=== PATIENT | female | born 1985 | race Caucasian/White ===

== ENCOUNTER 2020-06-04 08:04 | Emergency (ER) | payer MEDICAID, OTHER ==
[~2020-06-04] VITALS: Ht 175.2 cm; Wt 95.5 kg
[2020-06-04] MEDS ORDERED: VARE1TAB22 (08:23)
[2020-06-04] MEDS ORDERED: SERT50TA9 (08:23)
[2020-06-04] MEDS ORDERED: BUSP5TAB59 (08:23)
--- NOTE | 2020-06-04 08:56 | Diagnostic Imaging Report ---
INDICATION: Right ankle pain. TECHNIQUE: AP, oblique, and lateral views of the right ankle were obtained. FINDINGS: On the lateral view, there is an oblique linear lucency in the distal tibia which may represent a nondisplaced fracture. Followup is recommended. There is some plantar and posterior calcaneal spurring. There is a calcification inferior to the tip of the medial malleolus of the distal tibia which may be a small avulsion, chronic versus acute. IMPRESSION: Questionable nondisplaced fracture of the distal tibia seen only on the lateral view, recommend followup imaging. Calcification is seen inferior to the medial malleolus of the distal tibia which may be an avulsion, chronic versus acute. Dictated by: Dictated on workstation # [id number]
--- NOTE | 2020-06-04 08:58 | Diagnostic Imaging Report ---
INDICATION: Injury, pain. FINDINGS: No acute fracture or dislocation is identified. There is enthesopathy and spurring at the calcaneus as well as accessory ossicles at the midfoot. No focal soft tissue swelling is evident. IMPRESSION: No acute appearing abnormality on the three view right foot exam. Dictated by: Dictated on workstation # [id number]
[2020-06-04] MEDS ORDERED: HYDROcodone/APAP 5 MG/325 MG (LORTAB) TAB PO ONE (09:00)
[2020-06-04] MEDS ORDERED: IBUPROFEN 600 MG (MOTRIN) TAB PO ONE (09:00)
--- NOTE | 2020-06-04 09:07 | ED Lower Extremity ---
General Chief Complaint: Lower Extremity Stated Complaint: RT KNEE INJ Nursing Triage Note: Pt presents to ED assisted with W/C. 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 Pt states her R foot went anteflexed under her full weight and falling. Pain with ROM Nursing Sepsis Screen: No Definite Risk Source: patient Exam Limitations: no limitations History of Present Illness Date Seen by Provider: Jun 04, 2020 Time Seen by Provider: 08:15 Initial Comments Dishes a 34-year-old female presents with right ankle injury. Patient was walking when she inverted her toes and anteflexed her ankle. She reports proximal and posterior ankle pain worse with palpation and weightbearing. She is unable to weight-bear secondary to pain. Patient also has a small abrasion over her left medial forefoot. Denies other injury or pain complaints. Injury occurred just prior to ED arrival. Onset: just prior to arrival Severity: moderate Pain/Injury Location: right ankle Method of Injury: direct blow Modifying Factors: Improves With Rest Allergies and Home Medications Allergies Coded Allergies: No Known Drug Allergies (Unverified , 06/04/20) Patient Home Medication List Home Medication List Reviewed: Yes Review of Systems Constitutional: no symptoms reported EENTM: no symptoms reported Respiratory: no symptoms reported Cardiovascular: no symptoms reported Gastrointestinal: no symptoms reported Genitourinary: no symptoms reported Musculoskeletal: joint pain Skin: see HPI Psychiatric/Neurological: No Symptoms Reported All Other Systems Reviewed Negative Unless Noted: Yes Past Zrgaolu-Obnksp-Dcfwmq Hx Past Med/Social Hx: Reviewed Nursing Past Med/Soc Hx Patient Social History Alcohol Use: Denies Use Recreational Drug Use: No Smoking Status: Current Everyday Smoker Type Used: Cigarettes Recent Foreign Travel: No Contact w/Someone Who Travel: No Recent Infectious Disease Expo: No Recent Hopitalizations: No Physical Abuse: No Sexual Abuse: No Mistreated: No Fear: No Immunizations Up To Date Tetanus Booster (TDap): Unknown Seasonal Allergies Seasonal Allergies: No Past Medical History Surgeries: Yes (Ablation uterus) Tubal Ligation Respiratory: No Cardiac: No Neurological: No : No Last Menstrual Period: May 19, 2020 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 oz. kg; 31.00 BMI Method: General Appearance: WD/WN, no apparent distress HEENT: PERRL/EOMI, pharynx normal Neck: full range of motion, normal inspection Cardiovascular: regular rate, rhythm Respiratory: lungs clear, normal breath sounds Ankles: right ankle abrasions/lacerations, right ankle bone tenderness, right ankle soft tissue tenderness, right ankle swelling Neurologic/Tendon: normal sensation Neurologic/Psychiatric: no motor/sensory deficits Skin: other (abrasions over dorsum of right forefoot) Progress/Results/Core Measures Results/Orders My Orders Orders - EVER POZO DO Ankle 3 View Right (06/04/20 08:34) Foot 3 View Right (06/04/20 08:34) Ibuprofen Tablet (Motrin Tablet) (06/04/20 09:00) Hydrocodone/Apap 5/325 Tablet (Lortab 5 (06/04/20 09:00) Nursing Communication (Order) (06/04/20 08:59) Ice: Apply To Affected Area (06/04/20 09:00) Vital Signs/I&O 06/04/20 08:15 Temp 36.6 Pulse 93 Resp 16 B/P (MAP) 138/77 (97) Pulse Ox 100 O2 Delivery Room Air Blood Pressure Mean: 97 Departure Communication (Admissions) Right foot/right ankle x-ray: Possible nondisplaced distal tibial fracture per radiology report. Pain address, patient placed since splint and given crutches. Instructed to remain nonweightbearing with orthopedic referral. Patient verbalizes understanding. Discharge instructions prior to departure. Impression Primary Impression: Ankle fracture Disposition: 01 HOME, SELF-CARE Condition: Stable Departure-Patient Inst. Decision time for Depature: 09:13 Referrals: [facility] (PCP) Primary Care Physician CHRISTIANA CHO APRN (Family) Primary Care Physician Patient Instructions: Ankle Fracture Add. Discharge Instructions: You were evaluated in the emergency department for right ankle injury. X-ray shows the possibility of a small nondisplaced ankle fracture. Please use crutches and remain nonweightbearing on affected foot. Take ibuprofen for pain apply ice and keep leg elevated at rest. Take hydrocodone as needed for additional relief. Follow-up with Dr. Bhagat strategic sourcing consultant for orthopedic surgery. Return to the ED if new or worsening symptoms. All discharge instructions reviewed with patient and/or family. Voiced understanding. EVER POZO DO Jun 04, 2020 09:07
[2020-06-04] MEDS ORDERED: ACHD5005 PO (09:17)
[2020-06-04 09:25] VITALS: BP 131/70
== END 2020-06-04 09:25 | disposition home or self-care (01) ==
LOC: ER FS 08:06
DX: S82.51XA Displaced fracture of medial malleolus of right tibia, initial encounter for closed fracture (principal); S90.811A Abrasion, right foot, initial encounter; F17.210 Nicotine dependence, cigarettes, uncomplicated; X50.1XXA Overexertion from prolonged static or awkward postures, initial encounter
CPT/HCPCS: 73610; 73630

== ENCOUNTER → 2020-11-22 | Outpatient (CLI) | payer MEDICAID ==
[~2020-11-22] MED LIST: ACHD5005 PO; BUSP5TAB59; SERT-413; VARE1TAB22
--- NOTE | 2020-11-22 11:35 | Diagnostic Imaging Report ---
EXAMINATION: AP supine abdomen INDICATION: Left abdominal pain. COMPARISON: None available. FINDINGS: There is a nonobstructive bowel gas pattern. Scattered gas and stool is noted in the colon, with mild retained stool noted throughout. No abnormal abdominal calcifications or organomegaly. No evidence of pneumoperitoneum on this supine study. No acute osseous abnormality is identified. Surgical clips are demonstrated in the left pelvis. IMPRESSION: Nonobstructive bowel gas pattern. Mild retained stool. Dictated by: Dictated on workstation # [id number]
== END ==
LOC: RAD FS 08:27
PROVIDERS: ATTEND Nurse Practitioner Family
DX: R10.9 Unspecified abdominal pain (principal)
CPT/HCPCS: 74018

== ENCOUNTER 2022-01-13 08:23 | Emergency (ER) | payer MEDICAID ==
[~2022-01-13] VITALS: Ht 177.8 cm; Wt 97.5 kg
[2022-01-13] MEDS ORDERED: morphine INJ 10 MG/ML 1ML (SYR OR VIAL) IVP STA (08:53)
[2022-01-13] MEDS ORDERED: ONDANSETRON 4 MG/2 ML (SDV) Z0FRAN IVP ONE (09:00)
[2022-01-13] MEDS ORDERED: KETOROLAC 30 MG/ML VIAL IVP ONE (09:00)
[2022-01-13 09:02] LABS: BASOPHILS # (AUTO) 0.1 10^3/uL (0.0-0.1); BASOPHILS % (AUTO) 1 % (0-10); EOSINOPHILS % (AUTO) 0 % (0-10); HEMATOCRIT 45 % (35-52); HEMOGLOBIN 14.9 g/dL (11.5-16.0); LYMPHOCYTES # (AUTO) 1.4 10^3/uL (1.0-4.0); LYMPHOCYTES % (AUTO) 13 % (12-44); MEAN CORPUSCULAR HEMOGLOBIN 32 pg (25-34); MEAN CORPUSCULAR HGB CONC 33 g/dL (32-36); MEAN CORPUSCULAR VOLUME 97 fL (80-99); MEAN PLATELET VOLUME 9.9 fL (9.0-12.2); MONOCYTES % (AUTO) 9 % (0-12); NEUTROPHILS # (AUTO) 8.1 10^3/uL (1.8-7.8); NEUTROPHILS % (AUTO) 76 % (42-75); PLATELET COUNT 251 10^3/uL (130-400); WHITE BLOOD COUNT 10.6 10^3/uL (4.3-11.0)
--- NOTE | 2022-01-13 09:03 | ED Back Pain ---
General Chief Complaint: Back Problems Stated Complaint: RT FLANK; ABD PAIN Source of Information: Patient Exam Limitations: No Limitations History of Present Illness Date Seen by Provider: Jan 13, 2022 Time Seen by Provider: 08:26 Initial Comments 36yoF with PMH of kidney stones coming in due to L>R flank pain. Has been severe, sharp, and intermittent for the past week or so. Went to the urgent care 2 days ago and they did a urine dip showing blood. Last kidney stone was around 2008. She has never required any surgical interventions for them. Has not had any medicines today due to nausea and nb/nb vomiting that started this morning She is otherwise denying any fever, abd pain, dysuria, weakness, numbness, fidel h, chest pain, SOA, or any other concerns. Of note, she had a tubal ligation and ablation of her uterus years ago. Allergies and Home Medications Allergies Coded Allergies: No Known Drug Allergies (Unverified , 06/04/20) Patient Home Medication List Home Medication List Reviewed: Yes Buspirone HCl (Buspirone HCl) 5 Mg Tablet, (Reported) Entered as Reported by: PAM BURNS on 06/04/20822 Hydrocodone/Acetaminophen (Hydrocodone-Acetamin 5-325 mg) 1 Each Tablet, 1 EACH PO Q6H Prescribed by: EVER POZO on 06/04/20 09 Sertraline HCl (Sertraline HCl) 50 Mg Tablet, (Reported) Entered as Reported by: PAM BURNS on 06/04/20822 Varenicline Tartrate (Chantix) 1 Mg Tablet, (Reported) Entered as Reported by: PAM BURNS on 06/04/20822 Review of Systems Constitutional: No chills, No fever Respiratory: No cough Cardiovascular: No chest pain Gastrointestinal: No abdominal pain Genitourinary: other (flank pain) Musculoskeletal: no symptoms reported Skin: no symptoms reported Psychiatric/Neurological: No Symptoms Reported All Other Systems Reviewed Negative Unless Noted: Yes Past Yhjviwm-Fzghjz-Srybon Hx Patient Social History Tobacco Use?: Yes Tobacco type used: Cigarettes Smoking Status: Current Everyday Smoker Smokeless Tobacco Frequency: Never a User Use of E-Cig and/or Vaping dev: No Use of E-Cig and/or Vaping Dieon: Never a User Substance use?: No Alcohol Use?: No Pt feels they are or have been: No Immunizations Up To Date Tetanus Booster (TDap): Unknown Seasonal Allergies Seasonal Allergies: No Past Medical History Surgeries: Yes (Ablation uterus) Tubal Ligation Respiratory: No Cardiac: No Neurological: 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 oz. kg; 31.00 BMI Method: General Appearance: WD/WN, Mild Distress HEENT: PERRL/EOMI, Normal ENT Inspection, Pharynx Normal Neck: Full Range of Motion, Normal Inspection, Non Tender, Supple Cardiovascular: Regular Rate, Rhythm, No Edema, Normal Peripheral Pulses Respiratory: Chest Non Tender, Lungs Clear, Normal Breath Sounds, No Accessory Muscle Use, No Respiratory Distress Gastrointestinal: Normal Bowel Sounds, Non Tender, Soft; No Distended, No Guarding Back: Normal Inspection, No Vertebral Tenderness, CVA Tenderness (L) Extremity: Normal Capillary Refill, Normal Inspection, Normal Range of Motion, Non Tender, No Calf Tenderness, No Pedal Edema Neurologic/Psychiatric: Alert, No Motor/Sensory Deficits, Normal Mood/Affect Skin: Normal Color, Warm/Dry Lymphatic: No Adenopathy Progress/Results/Core Measures Results/Orders Lab Results Laboratory Tests Test 01/13/22 08:50 01/13/22 08:57 Range/Units Urine Color YELLOW Urine Clarity SL CLOUDY Urine pH 6.5 5-9 Urine Specific [employer] 1.010 L 1.016-1.022 Urine Protein 2+ H NEGATIVE Urine Glucose (UA) NEGATIVE NEGATIVE Urine Ketones NEGATIVE NEGATIVE Urine Nitrite NEGATIVE NEGATIVE Urine Bilirubin NEGATIVE NEGATIVE Urine Urobilinogen 0.2 < = 1.0 MG/DL Urine Leukocyte Esterase NEGATIVE NEGATIVE Urine RBC (Auto) 3+ H NEGATIVE Urine RBC NONE /HPF Urine WBC NONE /HPF Urine Squamous Epithelial Cells 2-5 /HPF Urine Renal Epithelial Cells RARE /HPF Urine Crystals PRESENT H /LPF Urine Amorphous Sediment FEW CLAUDIA PHOSPHATE H /LPF Urine Bacteria NEGATIVE /HPF Urine Casts NONE /LPF Urine Mucus NEGATIVE /LPF Urine Culture Indicated NO White Blood Count 10.6 4.3-11.0 10^3/uL Red Blood Count 4.65 3.80-5.11 10^6/uL Hemoglobin 14.9 11.5-16.0 g/dL Hematocrit 45 35-52 % Mean Corpuscular Volume 97 80-99 fL Mean Corpuscular Hemoglobin 32 25-34 pg Mean Corpuscular Hemoglobin Concent 33 32-36 g/dL Red Cell Distribution Width 13.5 10.0-14.5 % Platelet Count 251 130-400 10^3/uL Mean Platelet Volume 9.9 9.0-12.2 fL Immature Granulocyte % (Auto) 0 % Neutrophils (%) (Auto) 76 H 42-75 % Lymphocytes (%) (Auto) 13 12-44 % Monocytes (%) (Auto) 9 0-12 % Eosinophils (%) (Auto) 0 0-10 % Basophils (%) (Auto) 1 0-10 % Neutrophils # (Auto) 8.1 H 1.8-7.8 10^3/uL Lymphocytes # (Auto) 1.4 1.0-4.0 10^3/uL Monocytes # (Auto) 1.0 0.0-1.0 10^3/uL Eosinophils # (Auto) 0.0 0.0-0.3 10^3/uL Basophils # (Auto) 0.1 0.0-0.1 10^3/uL Immature Granulocyte # (Auto) 0.0 0.0-0.1 10^3/uL Sodium Level 143 135-145 MMOL/L Potassium Level 4.3 3.6-5.0 MMOL/L Chloride Level 110 H 98-107 MMOL/L Carbon Dioxide Level 23 21-32 MMOL/L Anion Gap 10 5-14 MMOL/L Blood Urea Nitrogen 11 7-18 MG/DL Creatinine 1.46 H 0.60-1.30 MG/DL Estimat Glomerular Filtration Rate 47 BUN/Creatinine Ratio 8 Glucose Level 113 H 70-105 MG/DL Calcium Level 9.4 8.5-10.1 MG/DL Corrected Calcium 9.2 8.5-10.1 MG/DL Total Bilirubin 0.2 0.1-1.0 MG/DL Aspartate Amino Transf (AST/SGOT) 18 5-34 U/L Alanine Aminotransferase (ALT/SGPT) 8 0-55 U/L Alkaline Phosphatase 77 40-136 U/L Total Protein 7.3 6.4-8.2 GM/DL Albumin 4.2 3.2-4.5 GM/DL My Orders Orders - EDIS SIMPSON MD Cbc With Automated Diff (01/13/22 08:53) Comprehensive Metabolic Panel (01/13/22 08:53) Ua Culture If Indicated (01/13/22 08:53) Ondansetron Injection (Zofran Injectio (01/13/22 09:00) Morphine Injection (Morphine Injection (01/13/22 08:53) Ketorolac Injection (Toradol Injection) (01/13/22 09:00) Ct Abdomen/Pelvis Wo (01/13/22 08:53) Medications Given in ED Current Medications Medications Dose Ordered Sig/Ariel Route Start Time Stop Time Status Last Admin Dose Admin Ketorolac Tromethamine 15 mg ONCE ONCE IVP 01/13/22 09:00 01/13/22 09:01 DC 01/13/22 09:02 15 MG Ondansetron HCl 4 mg ONCE ONCE IVP 01/13/22 09:00 01/13/22 09:01 DC 01/13/22 09:02 4 MG Vital Signs/I&O 01/13/22 08:47 Temp 36.7 Pulse 99 Resp 19 B/P (MAP) 145/99 (114) O2 Delivery Room Air Progress Progress Note : Progress Note 36yoF with above history coming in due to left flank pain. ABCs intact and VSS on presentation. She is tearful and leaning over an emesis bag. An IV was placed and she was given morphine as well as toradol for pain. Given zofran for nausea. White blood cell count normal, urinalysis with blood, creatinine 1.[address] abdomen pelvis without contrast ordered and shows no acute abnormality. Given the amount of blood in her urine with the history, I suspect she passed a kidney stone already, possibly this morning. I will have her follow-up with her primary care and give her information for urology if things are not improving. She needs to have a repeat urinalysis to see if the blood clears just in case it was not a kidney stone. I believe she is stable for discharge with outpatient follow-up. She was sent home with strict return precautions Departure Impression Primary Impression: Hematuria Qualified Codes: R31.9 - Hematuria, unspecified Additional Impression: Flank pain Disposition: 01 HOME, SELF-CARE Condition: Stable Departure-Patient Inst. Decision time for Depature: 09:32 Referrals: [facility]/ (PCP/Family) Primary Care Physician Patient Instructions: Flank Pain ED Add. Discharge Instructions: The CT of your abdomen and pelvis did not show any stone right now. I suspect you passed 1 earlier today and that is why it was normal. Fortunately there are no stones in your kidneys right now so you should not be passing any more for a while. Is always possible you have experiencing a back spasm. I recommend f ollowing up with your regular doctor in the next 2 to 3 days if things are not improving. Drink plenty of water because you are kidney function is slightly down. I want you to have your regular doctor to repeat labs for your kidney function and a repeat urine study to be sure the blood clears here in the next couple of weeks. Scripts Ondansetron (Ondansetron Odt) 4 Mg Tab.rapdis 4 MG PO Q6H PRN for NAUSEA/VOMITING-1ST LINE for 5 Days, #20 TAB Prov: EDIS SIMPSON MD 01/13/22 Hydrocodone Bit/Acetaminophen (HYDROcodone/APAP 5 MG/325 MG TAB) 1 Tab Tab 1 TAB PO Q6H PRN for SPASMS for 3 Days, #12 TAB 0 Refills Prov: EDIS SIMPSON MD 01/13/22 Work/School Note: Work Release Form Date Seen in the Emergency Department: Jan 13, 2022 Return to Work: Jan 14, 2022 Restrictions: No Restrictions EDIS SIMPSON MD Jan 13, 2022 09:03
[2022-01-13 09:04] LABS: BILIRUBIN,URINE NEGATIVE (NEGATIVE); CLARITY,URINE SL CLOUDY; COLOR,URINE YELLOW; GLUCOSE, URINE (UA) NEGATIVE (NEGATIVE); KETONES,URINE NEGATIVE (NEGATIVE); LEUKOCYTE ESTERASE ,URINE NEGATIVE (NEGATIVE); NITRITE,URINE NEGATIVE (NEGATIVE); PH,URINE 6.5 (5-9); PROTEIN,URINE 2+ (NEGATIVE)
[2022-01-13 09:13] LABS: AMORPHOUS SEDIMENT,UR FEW AMOR PHOSPHATE /LPF; BACTERIA,URINE NEGATIVE /HPF; RENAL EPITHELIAL CELLS,URINE RARE /HPF
--- NOTE | 2022-01-13 09:23 | Diagnostic Imaging Report ---
PROCEDURE: CT abdomen and pelvis without contrast. TECHNIQUE: Multiple contiguous axial images were obtained through the abdomen and pelvis without the use of intravenous contrast. Auto Exposure Controls were utilized during the CT exam to meet ALARA standards for radiation dose reduction. INDICATION: Right flank pain. I have no relevant comparison. FINDINGS: There is no hydroureteronephrosis and there are no radiopaque urinary tract calculi. The unopacified urinary bladder grossly unremarkable. The uterus and adnexa showed no acute or suspicious finding. Minute right pelvic free fluid within normal physiologic limits in a female patient of this age. There is no diverticulitis. There is no appendicitis. About 4 cm cephalad to the umbilicus is a midline ventral abdominal wall hernia with the hernial orifice measuring just less than 4 mm in diameter through the hernia as a fatty protrusion. No herniation of viscus. No obvious fluid or inflammatory changes within the fatty hernia sac. Liver, gallbladder, bile ducts, spleen, adrenals and pancreas unremarkable. No pneumatosis. No free air. No abnormal fecal loading. No ileus or bowel obstruction. IMPRESSION: 1. No kidney stone, no hydronephrosis, no acute finding. Midline ventral supraumbilical fatty abdominal wall hernia. No viscus hernia. 2. The remaining unopacified abdominal pelvic solid and hollow viscus unremarkable. Dictated by: Dictated on workstation # [id number]
[2022-01-13 09:25] LABS: POTASSIUM 4.3 MMOL/L (3.6-5.0)
[2022-01-13 09:26] LABS: ALBUMIN 4.2 GM/DL (3.2-4.5); BILIRUBIN,TOTAL 0.2 MG/DL (0.1-1.0); CALCIUM 9.4 MG/DL (8.5-10.1); CREATININE SERUM 1.46 MG/DL (0.60-1.30); TOTAL PROTEIN 7.3 GM/DL (6.4-8.2)
[2022-01-13] MEDS ORDERED: ACHD5005 PO (09:37)
[2022-01-13] MEDS ORDERED: ONDA4TAB11 PO (09:37)
[2022-01-13 09:46] VITALS: BP 137/61
== END 2022-01-13 09:47 | disposition home or self-care (01) ==
LOC: EDUNIT# 08:23 → ER FS 08:26
DX: R31.9 Hematuria, unspecified (principal); F17.210 Nicotine dependence, cigarettes, uncomplicated
CPT/HCPCS: 36415; 74176; 80053; 81000; 85025

== ENCOUNTER 2022-01-15 08:14 | Observation (INO) | payer MEDICAID ==
[~2022-01-15] VITALS: Ht 171 cm; Wt 100.0 kg
[~2022-01-15 08:14] MED LIST changes: +ONDA4TAB11 PO
--- NOTE | 2022-01-15 09:06 | ED Back Pain ---
General Chief Complaint: Abdominal/GI Problems Stated Complaint: BACK PAIN, N/V Nursing Triage Note: PT STATES HX OF RT FLANK PAIN, WAS SEEN HERE IN THE ER FOR THE SAME 01/13. STILL HAS PAIN AND VOMITING, ZOFRAN NOT HELPING AND WAS UNABLE TO GET INTO HER DR. Source of Information: Patient Exam Limitations: No Limitations History of Present Illness Date Seen by Provider: Jan 15, 2022 Time Seen by Provider: 08:50 Initial Comments Patient is a 36-year-old female who presents to the emergency department today with a chief complaint of right flank pain, low back pain ongoing for the last 3 or 4 days. She states she was seen at [facility] a couple of days ago, had labs, urine and imaging performed. She was told she had some microscopic hematuria as well as some mild kidney dysfunction. It was recommended she foll ow-up with her primary care physician for repeat labs. Patient was sent home with some hydrocodone and Zofran, states she has been taking the medications as prescribed but her pain has persisted. No fevers or chills. She is still vomiting. She was unable to get an outpatient follow-up appointment. She presents with similar symptoms. She does states she has a history of kidney stones remotely last in 2006. Has a history of tubal ligation. No problems with bowel or bladder. All other review of systems reviewed and negative except as stated Location: Lumbar Spine Timing/Duration: 1 Week Severity: Severe ("10") Modifying Factors: Improves With Other (laying down makes pain worse) Allergies and Home Medications Allergies Coded Allergies: No Known Drug Allergies (Unverified , 06/04/20) Patient Home Medication List Home Medication List Reviewed: Yes Buspirone HCl (Buspirone HCl) 5 Mg Tablet, (Reported) Entered as Reported by: PAM BURNS on 06/04/20 0823 Hydrocodone Bit/Acetaminophen (HYDROcodone/APAP 5 MG/325 MG TAB) 1 Tab Tab, 1 TAB PO Q6H PRN for SPASMS Prescribed by: EDIS SIMPSON on 01/13/22 0937 Hydrocodone/Acetaminophen (Hydrocodone-Acetamin 5-325 mg) 1 Each Tablet, 1 EACH PO Q6H Prescribed by: EVER POOZ on 06/04/20 0917 Ondansetron (Ondansetron Odt) 4 Mg Tab.rapdis, 4 MG PO Q6H PRN for NAUSEA/VOMITING-1ST LINE Prescribed by: EDIS SIMPSON on 01/13/22 0937 Sertraline HCl (Sertraline HCl) 50 Mg Tablet, (Reported) Entered as Reported by: PAM BURNS on 06/04/20 08 Varenicline Tartrate (Chantix) 1 Mg Tablet, (Reported) Entered as Reported by: PAM BURNS on 06/04/20 08 Review of Systems Constitutional: see HPI EENTM: no symptoms reported Respiratory: no symptoms reported Cardiovascular: no symptoms reported Gastrointestinal: nausea, vomiting Genitourinary: no symptoms reported : No Control/STD Prophylaxis: Other Musculoskeletal: back pain (low lumbar and right flank) Skin: no symptoms reported All Other Systems Reviewed Negative Unless Noted: Yes Past Lvblorh-Kaggug-Bhkteo Hx Patient Social History Tobacco Use?: Yes Tobacco type used: Cigarettes Smoking Status: Current Everyday Smoker Substance use?: No Alcohol Use?: No Immunizations Up To Date Tetanus Booster (TDap): Unknown Second COVID19 Vaccination Alex: 03/2021 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: [employer] Seasonal Allergies Seasonal Allergies: No Past Medical History Surgery/Hospitalization HX: TUBAL LIGATION Surgeries: Yes (Ablation uterus) Tubal Ligation Respiratory: No Cardiac: No Neurological: No 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 oz. kg; 33.00 BMI Method: General Appearance: WD/WN, Anxious HEENT: PERRL/EOMI Neck: Normal Inspection Cardiovascular: Regular Rate, Rhythm, Normal Peripheral Pulses Respiratory: Lungs Clear, Normal Breath Sounds, No Accessory Muscle Use, No Respiratory Distress Gastrointestinal: Soft, Tenderness (mild suprapubic tenderness and right lower quadrant tenderness; normal bowel sounds) Back: No CVA Tenderness (L), No CVA Tenderness (R) Extremity: Normal Capillary Refill, Normal Inspection, Normal Range of Motion Neurologic/Psychiatric: Alert, Oriented x3, No Motor/Sensory Deficits Skin: Normal Color, Warm/Dry, Other (no rashes) Progress/Results/Core Measures Results/Orders Lab Results Laboratory Tests Test 01/15/22 08:35 01/15/22 09:25 Range/Units Urine Color YELLOW Urine Clarity CLEAR Urine pH 5.5 5-9 Urine Specific Bude <=1.005 1.016-1.022 Urine Protein NEGATIVE NEGATIVE Urine Glucose (UA) NEGATIVE NEGATIVE Urine Ketones NEGATIVE NEGATIVE Urine Nitrite NEGATIVE NEGATIVE Urine Bilirubin NEGATIVE NEGATIVE Urine Urobilinogen 0.2 < = 1.0 MG/DL Urine Leukocyte Esterase NEGATIVE NEGATIVE Urine RBC (Auto) 1+ H NEGATIVE Urine RBC NONE /HPF Urine WBC 0-2 /HPF Urine Squamous Epithelial Cells 0-2 /HPF Urine Crystals NONE /LPF Urine Bacteria TRACE /HPF Urine Casts NONE /LPF Urine Mucus NEGATIVE /LPF Urine Culture Indicated NO White Blood Count 9.5 4.3-11.0 10^3/uL Red Blood Count 4.04 3.80-5.11 10^6/uL Hemoglobin 13.2 11.5-16.0 g/dL Hematocrit 40 35-52 % Mean Corpuscular Volume 98 80-99 fL Mean Corpuscular Hemoglobin 33 25-34 pg Mean Corpuscular Hemoglobin Concent 33 32-36 g/dL Red Cell Distribution Width 13.2 10.0-14.5 % Platelet Count 235 130-400 10^3/uL Mean Platelet Volume 10.1 9.0-12.2 fL Immature Granulocyte % (Auto) 0 % Neutrophils (%) (Auto) 74 42-75 % Lymphocytes (%) (Auto) 17 12-44 % Monocytes (%) (Auto) 8 0-12 % Eosinophils (%) (Auto) 0 0-10 % Basophils (%) (Auto) 0 0-10 % Neutrophils # (Auto) 7.0 1.8-7.8 10^3/uL Lymphocytes # (Auto) 1.6 1.0-4.0 10^3/uL Monocytes # (Auto) 0.8 0.0-1.0 10^3/uL Eosinophils # (Auto) 0.0 0.0-0.3 10^3/uL Basophils # (Auto) 0.0 0.0-0.1 10^3/uL Immature Granulocyte # (Auto) 0.0 0.0-0.1 10^3/uL Sodium Level 143 135-145 MMOL/L Potassium Level 4.2 3.6-5.0 MMOL/L Chloride Level 112 H 98-107 MMOL/L Carbon Dioxide Level 18 L 21-32 MMOL/L Anion Gap 13 5-14 MMOL/L Blood Urea Nitrogen 17 7-18 MG/DL Creatinine 2.88 #H 0.60-1.30 MG/DL Estimat Glomerular Filtration Rate 21 BUN/Creatinine Ratio 6 Glucose Level 98 70-105 MG/DL Calcium Level 8.8 8.5-10.1 MG/DL Corrected Calcium 9.0 8.5-10.1 MG/DL Total Bilirubin 0.5 0.1-1.0 MG/DL Aspartate Amino Transf (AST/SGOT) 17 5-34 U/L Alanine Aminotransferase (ALT/SGPT) < 6 0-55 U/L Alkaline Phosphatase 59 40-136 U/L Total Creatine Kinase 51 29-168 U/L Total Protein 6.7 6.4-8.2 GM/DL Albumin 3.8 3.2-4.5 GM/DL Serum Test, Qualitative NEGATIVE NEGATIVE My Orders Orders - PABLO SHAH MD Ed Iv/Invasive Line Start (01/15/22 09:06) Cbc With Automated Diff (01/15/22 09:06) Comprehensive Metabolic Panel (01/15/22 09:06) Hcg,Qualitative Serum (01/15/22 09:06) Ua Culture If Indicated (01/15/22 09:06) Ondansetron Injection (Zofran Injectio (01/15/22 09:15) Fentanyl Inj (Sublimaze Injection) (01/15/22 09:15) Ns Iv 1000 Ml (Sodium Chloride 0.9%) (01/15/22 09:15) Creatine Kinase (01/15/22 09:39) Fentanyl Inj (Sublimaze Injection) (01/15/22 10:45) Glycopyrrolate Injection (Robinul Inject (01/15/22 10:45) Tamsulosin Capsule (Flomax Capsule) (01/15/22 10:37) Ct Abdomen/Pelvis Wo (01/15/22 10:37) Ns Iv 1000 Ml (Sodium Chloride 0.9%) (01/15/22 10:45) Ns Iv 1000 Ml (Sodium Chloride 0.9%) (01/15/22 11:45) Medications Given in ED Current Medications Medications Dose Ordered Sig/Ariel Route Start Time Stop Time Status Last Admin Dose Admin Fentanyl Citrate 50 mcg ONCE ONCE IVP 01/15/22 09:15 01/15/22 09:16 DC 01/15/22 09:28 50 MCG Fentanyl Citrate 50 mcg ONCE ONCE IVP 01/15/22 10:45 01/15/22 10:46 DC 01/15/22 10:57 50 MCG Glycopyrrolate 0.2 mg ONCE ONCE IV 01/15/22 10:45 01/15/22 10:46 DC 01/15/22 11:29 0.2 MG Ondansetron HCl 4 mg ONCE ONCE IVP 01/15/22 09:15 01/15/22 09:16 DC 01/15/22 09:28 4 MG Vital Signs/I&O 01/15/22 01/15/22 01/15/22 08:24 09:28 10:57 Temp 37.4 37.4 37.4 Pulse 97 Resp 20 B/P (MAP) 132/98 (109) Pulse Ox 97 O2 Delivery Room Air Blood Pressure Mean: 109 Progress Progress Note #1: Time: 10:32 Progress Note Discussed with Dr Brooks. he recommends repeating the non contrast CT. Will provide further pain management. Progress Note #2: Time: 12:34 Progress Note Reassessed patient, she states her pain is a little bit better. She appears comfortable sitting in the bed. Stable vital signs. I communicated the plan of care with her. I did discuss her case with Dr. Lopez, secondary to the dramatic increase in her creatinine and decrease in GFR we will go ahead and admit her with acute kidney injury, fluids and further investigation and management into her back pain and renal failure. Patient is comfortable with the plan of care. Dr. Lopez will be doing que'd orders. Departure Communication (Admissions) Time/Spoke to Admitting Phy: 12:[address] Lopez Impression Primary Impression: Acute kidney injury Additional Impression: Low back pain Qualified Codes: M54.50 - Low back pain, unspecified Disposition: ADMITTED INPATIENT Condition: Stable Admissions Decision to Admit Reason: Admit from ER (General) Decision to Admit/Date: Jan 15, 2022 Time/Decision to Admit Time: 12:35 Departure-Patient Inst. Referrals: [facility] (PCP) Primary Care Physician CHARLEE HE APRN (Family) Primary Care Physician PABLO SHAH MD Jan 15, 2022 09:06
[2022-01-15 09:12] LABS: BILIRUBIN,URINE NEGATIVE (NEGATIVE); CLARITY,URINE CLEAR; COLOR,URINE YELLOW; GLUCOSE, URINE (UA) NEGATIVE (NEGATIVE); KETONES,URINE NEGATIVE (NEGATIVE); LEUKOCYTE ESTERASE ,URINE NEGATIVE (NEGATIVE); NITRITE,URINE NEGATIVE (NEGATIVE); PH,URINE 5.5 (5-9); PROTEIN,URINE NEGATIVE (NEGATIVE)
[2022-01-15] MEDS ORDERED: fentaNYL INJ 100 MCG/2 ML AMP IVP ONE ×2 (09:15→10:45)
[2022-01-15] MEDS ORDERED: ONDANSETRON 4 MG/2 ML (SDV) Z0FRAN IVP ONE (09:15)
[2022-01-15] MEDS ORDERED: NS IV 1000 ML 1,000 ML IV SCH ×3 (09:15→11:45)
[2022-01-15 09:23] LABS: BACTERIA,URINE TRACE /HPF; SQUAMOUS EPITHELIAL CELL,UR 0-2 /HPF; WBC,URINE 0-2 /HPF
[2022-01-15 09:32] LABS: BASOPHILS % (AUTO) 0 % (0-10); EOSINOPHILS % (AUTO) 0 % (0-10); HEMATOCRIT 40 % (35-52); HEMOGLOBIN 13.2 g/dL (11.5-16.0); LYMPHOCYTES # (AUTO) 1.6 10^3/uL (1.0-4.0); LYMPHOCYTES % (AUTO) 17 % (12-44); MEAN CORPUSCULAR HEMOGLOBIN 33 pg (25-34); MEAN CORPUSCULAR HGB CONC 33 g/dL (32-36); MEAN CORPUSCULAR VOLUME 98 fL (80-99); MEAN PLATELET VOLUME 10.1 fL (9.0-12.2); MONOCYTES # (AUTO) 0.8 10^3/uL (0.0-1.0); MONOCYTES % (AUTO) 8 % (0-12); NEUTROPHILS % (AUTO) 74 % (42-75); PLATELET COUNT 235 10^3/uL (130-400); WHITE BLOOD COUNT 9.5 10^3/uL (4.3-11.0)
[2022-01-15 09:47] LABS: ALBUMIN 3.8 GM/DL (3.2-4.5)
[2022-01-15 09:48] LABS: CHLORIDE 112 MMOL/L (98-107); POTASSIUM 4.2 MMOL/L (3.6-5.0); SODIUM 143 MMOL/L (135-145)
[2022-01-15 09:49] LABS: CALCIUM 8.8 MG/DL (8.5-10.1)
[2022-01-15 09:50] LABS: GLUCOSE 98 MG/DL (70-105); TOTAL PROTEIN 6.7 GM/DL (6.4-8.2)
[2022-01-15 09:51] LABS: CARBON DIOXIDE 18 MMOL/L (21-32)
[2022-01-15 09:52] LABS: BILIRUBIN,TOTAL 0.5 MG/DL (0.1-1.0)
[2022-01-15 09:53] LABS: ALKALINE PHOSPHATASE 59 U/L (40-136)
[2022-01-15 09:54] LABS: CREATININE SERUM 2.88 MG/DL (0.60-1.30); GFR ESTIMATED 21
[2022-01-15 09:55] LABS: BUN/CREATININE RATIO 6
[2022-01-15 09:57] LABS: ALANINE AMINOTRANSFERASE < 6 U/L (0-55)
[2022-01-15] MEDS ORDERED: TAMSULOSIN 0.4 MG (FLOMAX) CAP PO STA (10:37)
[2022-01-15] MEDS ORDERED: GLYCOPYRROLATE 0.2 MG/ML (ROBINUL) 2 ML VIAL IV ONE (10:45)
--- NOTE | 2022-01-15 11:47 | Diagnostic Imaging Report ---
PROCEDURE: CT abdomen and pelvis without contrast. TECHNIQUE: Multiple contiguous axial images were obtained through the abdomen and pelvis without the use of intravenous contrast. Auto Exposure Controls were utilized during the CT exam to meet ALARA standards for radiation dose reduction. INDICATION: Left-sided pain Comparison made to 01/13/2022. FINDINGS: There are no radiopaque urinary tract calculi. There is no hydroureteronephrosis. There is no perinephric or periureteric stranding or edema. The unopacified urinary bladder nondisplaced and nonfocal. The uterus and adnexa nonacute. There is no appendicitis, diverticulitis or evidence for torsion or volvulus. No small or large bowel obstruction. There is no pneumatosis or free gas. There is no focal inflammatory process identified. Liver, gallbladder, bile ducts, spleen, adrenals and pancreas all unremarkable. The aorta is nonaneurysmal. The lung bases clear and well expanded. No acute bony pathology. There is a midline ventral supraumbilical abdominal wall hernia with the hernial orifice 1.7 cm diameter its content solely fat and is associated with some generalized rectus diastases. IMPRESSION: Stable supraumbilical ventral abdominal wall fatty hernia. Unobstructed nonfocal urinary tracts no inflammatory process or acute appearing abnormalities. No change from recent exam. Dictated by: Dictated on workstation # [id number]
[2022-01-15 14:41] VITALS: BP 130/84
[2022-01-15] MEDS ORDERED: ONDA4TAB11 PO (14:46)
[2022-01-15] MEDS ORDERED: ACHD5005 PO (14:46)
[2022-01-15] MEDS: NS IV 1000 ML 1,000 ML IV SCH ×2 (14:58→21:14)
[2022-01-15 16:13] VITALS: BP 122/64
[2022-01-15 19:56] VITALS: BP 126/70
[2022-01-16] VITALS (7 sets, daily range): BP systolic 124–147; BP diastolic 66–96
[2022-01-16] MEDS: NS IV 1000 ML 1,000 ML IV SCH ×4 (03:55→23:24)
[2022-01-16 05:59] LABS: BASOPHILS % (AUTO) 0 % (0-10); EOSINOPHILS # (AUTO) 0.1 10^3/uL (0.0-0.3); EOSINOPHILS % (AUTO) 1 % (0-10); HEMATOCRIT 36 % (35-52); HEMOGLOBIN 11.9 g/dL (11.5-16.0); LYMPHOCYTES # (AUTO) 1.6 10^3/uL (1.0-4.0); LYMPHOCYTES % (AUTO) 21 % (12-44); MEAN CORPUSCULAR HEMOGLOBIN 33 pg (25-34); MEAN CORPUSCULAR HGB CONC 33 g/dL (32-36); MEAN CORPUSCULAR VOLUME 100 fL (80-99); MEAN PLATELET VOLUME 10.5 fL (9.0-12.2); MONOCYTES # (AUTO) 0.8 10^3/uL (0.0-1.0); MONOCYTES % (AUTO) 10 % (0-12); NEUTROPHILS # (AUTO) 5.1 10^3/uL (1.8-7.8); NEUTROPHILS % (AUTO) 68 % (42-75); PLATELET COUNT 168 10^3/uL (130-400); WHITE BLOOD COUNT 7.5 10^3/uL (4.3-11.0)
[2022-01-16 06:18] LABS: ALBUMIN 3.1 GM/DL (3.2-4.5); POTASSIUM 4.5 MMOL/L (3.6-5.0)
[2022-01-16 06:20] LABS: TOTAL PROTEIN 5.6 GM/DL (6.4-8.2)
[2022-01-16 06:22] LABS: BILIRUBIN,TOTAL 0.4 MG/DL (0.1-1.0)
[2022-01-16 06:24] LABS: CREATININE SERUM 2.73 MG/DL (0.60-1.30)
--- NOTE | 2022-01-16 11:39 | History & Physical ---
HPI History of Present Illness: 36 yo F that presented to the ER 2 days in a row with severe right flank pain. States that she has had kidney stones before and it felt similar but this time was alot worse. CT in [place] did not reveal any stones and patient denies passing any. She did have blood in her urine at that time. Repeat CT done in [place] and again did not reveal any stones. However she did have an increase in her Cr to 2.7. Patient denies ever being told she previously had any elevation in Cr. States that her grandmother did have kidney disease but she developed it later in life. She does not have any medical history from her mother or father. She states that she has been eating and drinking alittle less then normal but still has been urinating. This AM her flank pain is much better. Cr has improved some. Source: patient Exam Limitations: no limitations Date seen by provider: Jan 16, 2022 Time Seen by Provider: 09:15 Attending Physician Dallas Lopez MD [facility] [place] Consult Date of Admission Jan 15, 2022 at 12:34 Home Medications Home Medications Reviewed patient Home Medication Reconciliation performed by pharmacy medication reconciliations materials engineering technician and/or nursing. Patients Allergies have been reviewed. 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[employer] Past Medical History NA Review of Systems ([facility]) Constitutional: No fever, No malaise EENTM: no symptoms reported; No mouth pain, No nose congestion, No nose pain Respiratory: no symptoms reported; No cough, No dyspnea on exertion, No short of breath Cardiovascular: no symptoms reported; No chest pain, No edema, No palpitations Gastrointestinal: abdominal pain; No constipation, No diarrhea; loss of appetite; No nausea, No vomiting Genitourinary: dysuria, hematuria Musculoskeletal: back pain Skin: no symptoms reported; No lesions, No rash Psychiatric/Neurological: No Symptoms Reported Reviewed Test Results Reviewed Test Results Lab Laboratory Tests Test 01/16/22 05:43 01/16/22 07:00 Range/Units White Blood Count 7.5 4.3-11.0 10^3/uL Red Blood Count 3.61 L 3.80-5.11 10^6/uL Hemoglobin 11.9 11.5-16.0 g/dL Hematocrit 36 35-52 % Mean Corpuscular Volume 100 H 80-99 fL Mean Corpuscular Hemoglobin 33 25-34 pg Mean Corpuscular Hemoglobin Concent 33 32-36 g/dL Red Cell Distribution Width 13.2 10.0-14.5 % Platelet Count 168 130-400 10^3/uL Mean Platelet Volume 10.5 9.0-12.2 fL Immature Granulocyte % (Auto) 0 % Neutrophils (%) (Auto) 68 42-75 % Lymphocytes (%) (Auto) 21 12-44 % Monocytes (%) (Auto) 10 0-12 % Eosinophils (%) (Auto) 1 0-10 % Basophils (%) (Auto) 0 0-10 % Neutrophils # (Auto) 5.1 1.8-7.8 10^3/uL Lymphocytes # (Auto) 1.6 1.0-4.0 10^3/uL Monocytes # (Auto) 0.8 0.0-1.0 10^3/uL Eosinophils # (Auto) 0.1 0.0-0.3 10^3/uL Basophils # (Auto) 0.0 0.0-0.1 10^3/uL Immature Granulocyte # (Auto) 0.0 0.0-0.1 10^3/uL Sodium Level 143 135-145 MMOL/L Potassium Level 4.5 3.6-5.0 MMOL/L Chloride Level 117 H 98-107 MMOL/L Carbon Dioxide Level 15 L 21-32 MMOL/L Anion Gap 11 5-14 MMOL/L Blood Urea Nitrogen 18 7-18 MG/DL Creatinine 2.73 H 0.60-1.30 MG/DL Estimat Glomerular Filtration Rate 22 BUN/Creatinine Ratio 7 Glucose Level 100 70-105 MG/DL Calcium Level 8.0 L 8.5-10.1 MG/DL Corrected Calcium 8.7 8.5-10.1 MG/DL Total Bilirubin 0.4 0.1-1.0 MG/DL Aspartate Amino Transf (AST/SGOT) 25 5-34 U/L Alanine Aminotransferase (ALT/SGPT) 18 0-55 U/L Alkaline Phosphatase 61 40-136 U/L Total Protein 5.6 L 6.4-8.2 GM/DL Albumin 3.1 L 3.2-4.5 GM/DL Urine Creatinine 37 30-125 MG/DL Physical Exam-([facility]) Physical Exam Vital Signs VS - Last 72 Hours, by Label 01/15/22 01/15/22 01/15/22 01/15/22 08:24 09:28 10:57 13:27 Temp 37.4 37.4 37.4 36.5 Pulse 97 91 Resp 20 18 B/P (MAP) 132/98 (109) 123/91 Pulse Ox 97 97 O2 Delivery Room Air Room Air 01/15/22 01/15/22 01/15/22 01/15/22 14:00 14:41 16:13 19:47 Temp 35.9 36.2 Pulse 76 71 Resp 18 18 B/P (MAP) 130/84 (99) 122/64 (83) Pulse Ox 100 100 O2 Delivery Room Air Room Air Room Air Room Air 01/15/22 01/16/22 01/16/22 01/16/22 19:56 00:26 03:58 07:49 Temp 36.4 36.6 37.0 36.3 Pulse 76 86 66 71 Resp 18 16 16 18 B/P (MAP) 126/70 (88) 140/66 (90) 147/78 (101) 128/84 (99) Pulse Ox 98 98 99 97 O2 Delivery Room Air Room Air Room Air Room Air 01/16/22 01/16/22 08:00 11:13 Temp 36.2 Pulse 71 Resp 18 B/P (MAP) 124/82 (96) Pulse Ox 97 99 O2 Delivery Room Air Room Air Capillary Refill : Less Than 3 Seconds General Appearance: WD/WN, no apparent distress HEENT: PERRL/EOMI Neck: non-tender, full range of motion, supple Respiratory: chest non-tender, lungs clear, normal breath sounds, no respiratory distress, no accessory muscle use Cardiovascular: normal peripheral pulses, regular rate, rhythm, no edema, no murmur Gastrointestinal: normal bowel sounds, non tender, soft Back: CVA tenderness (R) Extremities: normal range of motion, non-tender, normal inspection, no pedal edema, no calf tenderness, normal capillary refill Neurologic/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
--- NOTE | 2022-01-16 13:27 | Diagnostic Imaging Report ---
PROCEDURE: US Renal/Bladder. TECHNIQUE: Multiple real-time grayscale images were obtained over the kidneys in various projections bilaterally. INDICATION: Acute renal failure. COMPARISON: 01/15/2022. FINDINGS: Right: The right kidney measures 14.1 cm in length. Renal cortical thickness and echogenicity are within normal limits. There is no evidence of calculi, solid focal mass or hydronephrosis. No perinephric fluid collections are identified. Left: The left kidney measures 13.2 cm in length. Renal cortical thickness and echogenicity are within normal limits. There is no evidence of calculi, solid focal mass or hydronephrosis. No perinephric fluid collections are identified. There is no abdominal ascites. Views of the pelvis demonstrate a mildly distended urinary bladder. Both ureteral jets are visualized. No large intraluminal filling defect or calculi are identified. IMPRESSION: 1. No acute renal abnormalities identified. Dictated by: Dictated on workstation # [id number]
[2022-01-16 15:36] LABS: CALCIUM 8.1 MG/DL (8.5-10.1); CREATININE SERUM 2.59 MG/DL (0.60-1.30); POTASSIUM 4.1 MMOL/L (3.6-5.0)
[2022-01-17] MEDS: NS IV 1000 ML 1,000 ML IV SCH (06:01)
[2022-01-17 06:22] LABS: CREATININE SERUM 2.49 MG/DL (0.60-1.30)
[2022-01-17 07:45] VITALS: BP 146/90
--- NOTE | 2022-01-17 10:09 | Discharge Summary ---
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 Date of Discharge: 01/17/22 Discharge Diagnosis: Acute kidney injury, flank pain Hospital Course: Patient had a brief hospital course after she was admitted after the second ER visit due to flank pain CT scan x-rays all negative but did show acute kidney injury required IV fluid which improved a bit but it appears that she has some sort of chronic kidney disease that ultimately will require a kidney biopsy but that will be done as an outpatient she was without pain and felt like she wanted to go home and she will be discharged with close follow-up with PCP in 2 days with check of a basic metabolic profile. Labs and Pending Lab Test: Laboratory Tests 01/16/22 15:10: Sodium Level 146H, Potassium Level 4.1, Chloride Level 118H, Carbon Dioxide Level 17L, Anion Gap 11, Blood Urea Nitrogen 19H, Creatinine 2.59H, Estimat Glomerular Filtration Rate 24, BUN/Creatinine Ratio 7, Glucose Level 95, Calcium Level 8.1L 01/17/22 05:34: Sodium Level 147H, Potassium Level 4.0, Chloride Level 119H, Carbon Dioxide Level 16L, Anion Gap 12, Blood Urea Nitrogen 17, Creatinine 2.49H, Estimat Glomerular Filtration Rate 25, BUN/Creatinine Ratio 7, Glucose Level 92, Calcium Level 8.0L Home Meds Active Reported Ondansetron Odt (Ondansetron) 4 Mg Tab.rapdis 4 Mg PO Q6H PRN Hydrocodone-Acetamin 5-325 mg (Hydrocodone/Acetaminophen) 5 Mg-325 Mg Tablet 1 Tab PO Q6H PRN Assessment/Pt Instructions PCP in 2 days Discharge Planning: <30 minutes discharge planning Discharge Physical Examination Vital Signs Vital Signs Date Time Temp Pulse Resp B/P (MAP) Pulse Ox O2 Delivery O2 Flow Rate FiO2 01/17/22 07:45 36.4 61 16 146/90 (108) 99 Room Air General Appearance: No Apparent Distress, WD/WN, Chronically ill Allergies: Coded Allergies: No Known Drug Allergies (Unverified , 06/04/20) Discharge Summary Date of Admission Jan 15, 2022 at 12:34 Date of Discharge Discharge Date: Jan 17, 2022 SOFIYA WALTERS DO Jan 17, 2022 10:09
[2022-01-17 11:21] VITALS: BP 146/90
== END 2022-01-17 11:10 | disposition home or self-care (01) ==
LOC: EDUNIT# 08:14 → ER 08:16 → 4TH 12:34
PROVIDERS: ADMIT Family Medicine; ATTEND Internal Medicine
DX: N17.9 Acute kidney failure, unspecified (principal); F17.210 Nicotine dependence, cigarettes, uncomplicated
CPT/HCPCS: 36415; 74176; 76770; 80048; 80053; 81000; 82550; 82570; 84300; 84703; 85025; 96360; 96361; G0378

== ENCOUNTER 2022-12-01 07:40 | Emergency (ER) | payer MEDICAID ==
[~2022-12-01] VITALS: Ht 167.7 cm; Wt 98.5 kg
[2022-12-01] MEDS ORDERED: NS IV 1000 ML 1,000 ML IV STA (08:08)
[2022-12-01] MEDS ORDERED: PANTOPRAZOLE 40 MG (PROTONIX) VIAL IV STA (08:08)
[2022-12-01] MEDS ORDERED: fentaNYL INJ 100 MCG/2 ML AMP IVP STA (08:08)
[2022-12-01] MEDS ORDERED: ONDANSETRON 4 MG/2 ML (SDV) Z0FRAN IVP STA (08:08)
[2022-12-01 08:17] LABS: BILIRUBIN,URINE NEGATIVE (NEGATIVE); CLARITY,URINE CLEAR; COLOR,URINE YELLOW; GLUCOSE, URINE (UA) NEGATIVE (NEGATIVE); KETONES,URINE NEGATIVE (NEGATIVE); LEUKOCYTE ESTERASE ,URINE NEGATIVE (NEGATIVE); NITRITE,URINE NEGATIVE (NEGATIVE); PROTEIN,URINE NEGATIVE (NEGATIVE)
[2022-12-01 08:22] LABS: BASOPHILS # (AUTO) 0.1 10^3/uL (0.0-0.1); BASOPHILS % (AUTO) 1 % (0-10); EOSINOPHILS % (AUTO) 0 % (0-10); HEMATOCRIT 46 % (35-52); HEMOGLOBIN 15.4 g/dL (11.5-16.0); LYMPHOCYTES # (AUTO) 1.6 10^3/uL (1.0-4.0); LYMPHOCYTES % (AUTO) 17 % (12-44); MEAN CORPUSCULAR HEMOGLOBIN 33 pg (25-34); MEAN CORPUSCULAR HGB CONC 34 g/dL (32-36); MEAN CORPUSCULAR VOLUME 97 fL (80-99); MEAN PLATELET VOLUME 10.1 fL (9.0-12.2); MONOCYTES # (AUTO) 0.5 10^3/uL (0.0-1.0); MONOCYTES % (AUTO) 5 % (0-12); NEUTROPHILS # (AUTO) 7.4 10^3/uL (1.8-7.8); NEUTROPHILS % (AUTO) 77 % (42-75); PLATELET COUNT 252 10^3/uL (130-400); WHITE BLOOD COUNT 9.7 10^3/uL (4.3-11.0)
--- NOTE | 2022-12-01 08:28 | ED General ---
General Chief Complaint: Back Problems Stated Complaint: VOMITING; LWR BACK PAIN Source of Information: Patient, Old Records (Discharge summary December [address] Eubanks, hospitalist at [facility]) History of Present Illness Date Seen by Provider: Dec 01, 2022 Time Seen by Provider: 07:48 Initial Comments 37-year-old female presenting with complaints of 1 week of left flank pain and started having nausea and vomiting yesterday. She states that her urine has been dark-colored. She reports not been able to keep anything down since yesterday. She has tried taking Tylenol with some water around 6:45 AM and states that she vomited back up. She was concerned because she had some similar symptoms in December 2021 and was found to be in acute renal failure. She has been released by her language asst that she was seen out of [place] as they told her that everything had improved. She does not know why she had the acute renal failure. From reviewing the notes and discharge summary and medical records from her admission to [facility] [address] Eubanks, patient had history of kidney stones, tubal ligation, and had an apparent underlying kidney condition that improved with IV fluids in the Hospital. She denies cobos ving any change in her bowels such as diarrhea or constipation. She denies pain with urination but states her urine has been darker in color. She reports her last menstrual cycle was 3 weeks ago on November 14. She had tried taking Tylenol at 6:45 AM for pain but did not keep it down. She denies other chronic medical problems and denies chronic medications that she takes daily. Severity: Severe Modifying Factors: worse with Movement (movement and palpation makes Left flankpain worse) Associated Systoms: No Chest Pain, No Cough, No Diaphoresis, No Fever/Chills, No Headaches, No Loss of Appetite, No Malaise; Nausea/Vomiting; No Rash, No Seizure, No Shortness of Air, No Syncope, No Weakness Allergies and Home Medications Allergies Coded Allergies: No Known Drug Allergies (Unverified , 06/04/20) Patient Home Medication List Home Medication List Reviewed: Yes Hydrocodone/Acetaminophen (Hydrocodone-Acetamin 5-325 mg) 5 Mg-325 Mg Tablet, 1 TAB PO Q6H PRN for PAIN-MODERATE (5-7), (Reported) Entered as Reported by: LAMBERTO ZEPEDA on 01/15/22 1446 Hydrocodone/Acetaminophen (Hydrocodone-Acetamin 5-325 mg) 5 Mg-325 Mg Tablet, 1 TAB PO Q6H PRN for PAIN SEVERE Prescribed by: ALEE GUERRERO on 12/01/22 0950 Ondansetron (Ondansetron Odt) 4 Mg Tab.rapdis, 4 MG PO Q6H PRN for NAUSEA/VOMITING-1ST LINE, (Reported) Entered as Reported by: LAMBERTO ZEPEDA on 01/15/22 1446 Ondansetron (Ondansetron Odt) 4 Mg Tab.rapdis, 4 MG PO Q6H PRN for NAUSEA/VOMITING Prescribed by: ALEE GUERRERO on 12/01/22 0949 Pantoprazole Sodium (Pantoprazole Sodium) 40 Mg Tablet.dr, 40 MG PO DAILY Prescribed by: ALEE GUERRERO on 12/01/22 0949 Review of Systems Review of Systems Constitutional: see HPI EENTM: no symptoms reported Respiratory: no symptoms reported Cardiovascular: no symptoms reported Gastrointestinal: see HPI Genitourinary: see HPI Musculoskeletal: no symptoms reported Skin: No change in color Psychiatric/Neurological: Anxiety Past Impairb-Eioxox-Pnkaxr Hx Immunizations Up To Date Tetanus Booster (TDap): Unknown First/Initial COVID19 Vaccinat: 03/2021 Second COVID19 Vaccination Alex: 03/2021 Third COVID19 Vaccination Date: 03/2021 Seasonal Allergies Seasonal Allergies: No Past Medical History Surgery/Hospitalization HX: TUBAL LIGATION, Acute kidney injury December 2021 Surgeries: Yes (Ablation uterus) Tubal Ligation Respiratory: No Cardiac: No Neurological: No [employer]INTENANCE History: Tubal Ligation Genitourinary: No Gastrointestinal: No Musculoskeletal: No Endocrine: No HEENT: No Cancer: No Psychosocial: Yes Anxiety, Depression Blood Disorders: No Adverse Reaction/Blood Tranf: No Physical Exam Vital Signs Vital Signs - First Documented 12/01/22 07:50 Temp 36.9 Pulse 112 Resp 18 B/P (MAP) 179/119 (139) Pulse Ox 100 O2 Delivery Room Air Capillary Refill : Height, Weight, BMI Height: '" Weight: lbs. oz. kg; 33.34 BMI Method: General Appearance: Anxious, Mild Distress (has tears as she is answering questions) HEENT: PERRL/EOMI, Pharynx Normal, Moist Mucous Membranes Neck: Full Range of Motion, Normal Inspection, Non Tender, Supple Respiratory: Chest Non Tender, Lungs Clear, Normal Breath Sounds, No Accessory Muscle Use, No Respiratory Distress Cardiovascular: Regular Rate, Rhythm, Normal Peripheral Pulses Gastrointestinal: Normal Bowel Sounds, No Pulsatile Mass, Soft; No Distended, No Guarding, No Rebound; Tenderness (left CVA and left upper flank pain with palpation) Rectal: Deferred Back: CVA Tenderness (L) Extremity: Normal Capillary Refill, Normal Inspection, No Pedal Edema Neurologic/Psychiatric: Alert, Oriented x3, 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-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 Norm as Tested Skin: Normal Color, Warm/Dry Progress/Results/Core Measures Suspected Sepsis SIRS Temperature: Pulse: Respiratory Rate: Laboratory Tests 12/01/22 08:15: White Blood Count 9.7 Blood Pressure / Mean: Laboratory Tests 12/01/22 08:15: Creatinine 0.85, Platelet Count 252, Total Bilirubin 0.2 Results/Orders Lab Results Laboratory Tests Test 12/01/22 07:50 12/01/22 08:15 Range/Units Urine Color YELLOW Urine Clarity CLEAR Urine pH 6.0 5-9 Urine Specific Mccoy <=1.005 1.016-1.022 Urine Protein NEGATIVE NEGATIVE Urine Glucose (UA) NEGATIVE NEGATIVE Urine Ketones NEGATIVE NEGATIVE Urine Nitrite NEGATIVE NEGATIVE Urine Bilirubin NEGATIVE NEGATIVE Urine Urobilinogen 0.2 < = 1.0 MG/DL Urine Leukocyte Esterase NEGATIVE NEGATIVE Urine RBC (Auto) TRACE-I H NEGATIVE Urine RBC RARE /HPF Urine WBC 0-2 /HPF Urine Squamous Epithelial Cells 2-5 /HPF Urine Crystals NONE /LPF Urine Bacteria NEGATIVE /HPF Urine Casts NONE /LPF Urine Mucus NEGATIVE /LPF Urine Culture Indicated NO White Blood Count 9.7 4.3-11.0 10^3/uL Red Blood Count 4.71 3.80-5.11 10^6/uL Hemoglobin 15.4 11.5-16.0 g/dL Hematocrit 46 35-52 % Mean Corpuscular Volume 97 80-99 fL Mean Corpuscular Hemoglobin 33 25-34 pg Mean Corpuscular Hemoglobin Concent 34 32-36 g/dL Red Cell Distribution Width 13.2 10.0-14.5 % Platelet Count 252 130-400 10^3/uL Mean Platelet Volume 10.1 9.0-12.2 fL Immature Granulocyte % (Auto) 0 % Neutrophils (%) (Auto) 77 H 42-75 % Lymphocytes (%) (Auto) 17 12-44 % Monocytes (%) (Auto) 5 0-12 % Eosinophils (%) (Auto) 0 0-10 % Basophils (%) (Auto) 1 0-10 % Neutrophils # (Auto) 7.4 1.8-7.8 10^3/uL Lymphocytes # (Auto) 1.6 1.0-4.0 10^3/uL Monocytes # (Auto) 0.5 0.0-1.0 10^3/uL Eosinophils # (Auto) 0.0 0.0-0.3 10^3/uL Basophils # (Auto) 0.1 0.0-0.1 10^3/uL Immature Granulocyte # (Auto) 0.0 0.0-0.1 10^3/uL Sodium Level 142 135-145 MMOL/L Potassium Level 4.0 3.6-5.0 MMOL/L Chloride Level 109 H 98-107 MMOL/L Carbon Dioxide Level 20 L 21-32 MMOL/L Anion Gap 13 5-14 MMOL/L Blood Urea Nitrogen 8 7-18 MG/DL Creatinine 0.85 0.60-1.30 MG/DL Estimat Glomerular Filtration Rate 90 BUN/Creatinine Ratio 9 Glucose Level 124 H 70-105 MG/DL Calcium Level 9.5 8.5-10.1 MG/DL Corrected Calcium 9.3 8.5-10.1 MG/DL Total Bilirubin 0.2 0.1-1.0 MG/DL Aspartate Amino Transf (AST/SGOT) 17 5-34 U/L Alanine Aminotransferase (ALT/SGPT) 13 0-55 U/L Alkaline Phosphatase 83 40-136 U/L Total Protein 7.9 6.4-8.2 GM/DL Albumin 4.2 3.2-4.5 GM/DL Lipase 36 8-78 U/L My Orders Orders - ALEE GUERRERO MD Comprehensive Metabolic Panel (12/01/22 08:07) Lipase (12/01/22 08:07) Ua Culture If Indicated (12/01/22 08:07) Ed Iv/Invasive Line Start (12/01/22 08:07) Cbc With Automated Diff (12/01/22 08:07) Ct Abdomen/Pelvis Wo (12/01/22 08:07) Urine Bedside (12/01/22 08:07) Ns Iv 1000 Ml (Sodium Chloride 0.9%) (12/01/22 08:08) Ondansetron Injection (Zofran Injectio (12/01/22 08:08) Fentanyl Inj (Sublimaze Injection) (12/01/22 08:08) Pantoprazole Injection (Protonix Injecti (12/01/22 08:08) Ketorolac Injection (Toradol Injection) (12/01/22 09:47) Vital Signs/I&O 12/01/22 12/01/22 07:50 10:00 Temp 36.9 Pulse 112 84 Resp 18 18 B/P (MAP) 179/119 (139) 137/81 Pulse Ox 100 100 O2 Delivery Room Air Room Air Capillary Refill : Progress Note #1: Progress Note Potential diagnosis of kidney stone, renal colic, ureteral obstruction, pyelonephritis, diverticulitis, colitis, gastritis, peptic ulcer disease, pancreatitis, ectopic . Obtain peripheral IV access and send labs for complete blood count, comprehensive metabolic profile, lipase. Obtain urine to test for signs of UTI and hydration as well as a bedside test. Administer normal saline 1 L IV fluid bolus for hydration, Zofran 4 mg IV for nausea and vomiting, fentanyl 50 mcg IV for left flank pain. CT scan of the abdomen pelvis without IV contrast to look for signs of kidney stone or process in the left flank or kidney area that would account for her pain. Progress Note #2: Time: 08:36 Progress Note I personally reviewed the CT scan of the abdomen pelvis without IV contrast in my opinion she might have a 2 to 3 mm kidney stone with some mild hydroureter on the left side. The possible stone appeared to be at the level of the ureterovesicular junction, but it is just beside surgical clips from reported tubal ligation. This could just be a calcification outside of ureter. Awaiting radiology reading. Her complete blood count did not show an elevated white blood cell count as it was at 9.7. She also was not showing anemia with her hemoglobin. Her urinalysis was very dilute with specific gravity less than 1.005 with a trace amount of blood. She had negative bedside test. Progress Note #3: Time: 09:06 Progress Note metabolic profile did not show renal failure as her BUN was 8 with a creatinine of 0.85. She had a GFR of 90. Her lipase was normal at 36. She had mild elevation of her glucose to 124. Her LFTs and other electrolytes does not show acute significant abnormality. I reviewed the radiologist report on the CT scan of the abdomen pelvis without IV contrast. The report and there is no acute process in the imaging to account for her symptoms. She had no definite kidney stone or ureteral stone. It did appear that she had a right ovarian cyst. They did not visualize the appendix but states they did not have findings for acute appendicitis such as lymphadenopathy or inflammatory changes in the right lower quadrant. Will check back with patient and see if her symptoms are doing any better. Will reassure patient that we do not see kidney failure today and her testing it not giving a reason for her pain and symptoms. After reviewing results with the patient and updating her on test results and findings she did report her pain and nausea were doing better but not completely gone. Advised her that I will continue nausea medicine to help keep her stomach settled so she can drink and stay hydrated. Will prescribe a few hydrocodone with acetaminophen 5/325 mg pills for severe pain. Pantoprazole 40 mg a day for possible gastritis. Counseled to check back with the clinic as they may need to get her set up for EGD or scope to look for signs of peptic ulcer disease or additional testing looking for source of her left upper quadrant abdominal pain and flank pain. Follow a liquid diet for the first 24 hours then advance as tolerated. Try to keep sipping on fluids to help with hydration. At this point I was not finding anything that would [id number] her to be admitted to the hospital for more emergent evaluation and testing for her symptoms. I felt that she was safe to be discharged home with outpatient treatment and encouraged her to arrange follow-up for her further work-up with the clinic. Counseled on follow-up and return precautions. Diagnostic Imaging Diagonstic Imaging: CT Plain Films/CT/US/NM/MRI: abdomen, pelvis Comments [facility] [place], [place] NAME: SALVATORE [facility] REC#: [id number] PT STATUS: REG ER : 1985 PHYSICIAN: ALEE GUERRERO MD ADMIT DATE: 12/01/22/ER FS Signed Date of Exam:12/01/22 CT ABDOMEN/PELVIS WO PROCEDURE: CT abdomen and pelvis without contrast. TECHNIQUE: Multiple contiguous axial images were obtained through the abdomen and pelvis without the use of intravenous contrast. Auto Exposure Controls were utilized during the CT exam to meet ALARA standards for radiation dose reduction. INDICATION: 37-year-old female, right flank and back pain. History of renal failure last year. CORRELATION STUDY: CT abdomen pelvis 01/07/2022 FINDINGS: LOWER THORAX: Visualized lung bases unremarkable. Heart size normal. Calcification low posterior mediastinum adjacent the esophagus. LIVER: Unremarkable on unenhanced imaging. GALLBLADDER: Present and unremarkable. No bile duct dilatation. SPLEEN: Unremarkable. PANCREAS: Unremarkable. ADRENAL GLANDS: Unremarkable. KIDNEYS: Normal configuration. No calcification or obstruction. ABDOMINAL AORTA: Unremarkable, nonaneurysmal. A few shotty aortocaval and mesenteric lymph nodes. GASTROINTESTINAL TRACT: The proximal colon is folded on itself. The appendix is not discretely visualized. No focal right lower quadrant inflammatory change. Gastrointestinal tract demonstrates no obstruction. URINARY BLADDER: Unremarkable. REPRODUCTIVE: Surgical clips left adnexa. 4 x 3.3 cm right posterior adnexal cyst likely an ovarian cyst. OSSEOUS STRUCTURES: No acute abnormality. OTHER: Fat-containing midline supraumbilical hernia. IMPRESSION: 1. Negative for acute abnormality of the abdomen or pelvis. 2. Negative for nephroureterolithiasis or obstructive uropathy. 3. Non-visualized appendix. No focal right lower quadrant inflammatory change. 4. Proximal 4 cm right adnexal cyst, likely physiologic ovarian cyst. Dictated by: Dictated on workstation # [id number] Dict: 12/01/22 0838 Trans: 12/01/22 0851 DO [id number] Interpreted by: GALILEO FLEMING DO Electronically signed by: GALILEO FLEMING DO 12/01/22 0851 Reviewed: Reviewed by Hi Departure Impression Primary Impression: Acute left flank pain Additional Impression: Nausea and vomiting in adult Disposition: 01 HOME, SELF-CARE Condition: Stable Departure-Patient Inst. Decision time for Depature: 09:47 Referrals: CHARLEE EH APRN (PCP) Primary Care Physician [facility] (Family) Primary Care Physician Patient Instructions: Flank Pain ED, Nausea and Vomiting, Adult ED, Abdominal Pain, Adult ED Add. Discharge Instructions: Continue to stay well-hydrated and keep sipping on fluids. Check with the [facility] clinic as they may need to set you up for a scope to look at the lining of your stomach or other testing looking for reasons you have pain in the left side going into your back. Your test today had looked okay and your renal function was normal. Use the dissolving nausea tablets to help keep your stomach settled so you can keep drinking fluids. For severe pain you could use the narcotic hydrocodone with acetaminophen 5/325 mg pills every 6 hours as needed for severe pain. Take the acid director of business continuity medicine pantoprazole or Protonix daily in case some of this pain was from an ulcer or irritation to the stomach lining. All discharge instructions reviewed with patient and/or family. Voiced understanding. Scripts Pantoprazole Sodium (Pantoprazole Sodium) 40 Mg Tablet.dr 40 MG PO DAILY for Abdominal Pain for 30 Days, #30 TAB 0 Refills Prov: ALEE GUERRERO MD 12/01/22 Hydrocodone/Acetaminophen (Hydrocodone-Acetamin 5-325 mg) 5 Mg-325 Mg Tablet 1 TAB PO Q6H PRN for PAIN SEVERE for 3 Days, #12 TAB 0 Refills Prov: ALEE GUERRERO MD 12/01/22 Ondansetron (Ondansetron Odt) 4 Mg Tab.rapdis 4 MG PO Q6H PRN for NAUSEA/VOMITING for 3 Days, #12 TAB 0 Refills Prov: ALEE GUERRERO MD 12/01/22 Work/School Note: Work Release Form Date Seen in the Emergency Department: Dec 01, 2022 Return to Work: Dec 03, 2022 Restrictions: Return-No Vomiting(24hrs) ALEE GUERRERO MD Dec 01, 2022 08:28
[2022-12-01 08:37] LABS: BACTERIA,URINE NEGATIVE /HPF; RBC,URINE RARE /HPF; WBC,URINE 0-2 /HPF
--- NOTE | 2022-12-01 08:48 | Diagnostic Imaging Report ---
PROCEDURE: CT abdomen and pelvis without contrast. TECHNIQUE: Multiple contiguous axial images were obtained through the abdomen and pelvis without the use of intravenous contrast. Auto Exposure Controls were utilized during the CT exam to meet ALARA standards for radiation dose reduction. INDICATION: 37-year-old female, right flank and back pain. History of renal failure last year. CORRELATION STUDY: CT abdomen pelvis 01/07/2022 FINDINGS: LOWER THORAX: Visualized lung bases unremarkable. Heart size normal. Calcification low posterior mediastinum adjacent the esophagus. LIVER: Unremarkable on unenhanced imaging. GALLBLADDER: Present and unremarkable. No bile duct dilatation. SPLEEN: Unremarkable. PANCREAS: Unremarkable. ADRENAL GLANDS: Unremarkable. KIDNEYS: Normal configuration. No calcification or obstruction. ABDOMINAL AORTA: Unremarkable, nonaneurysmal. A few shotty aortocaval and mesenteric lymph nodes. GASTROINTESTINAL TRACT: The proximal colon is folded on itself. The appendix is not discretely visualized. No focal right lower quadrant inflammatory change. Gastrointestinal tract demonstrates no obstruction. URINARY BLADDER: Unremarkable. REPRODUCTIVE: Surgical clips left adnexa. 4 x 3.3 cm right posterior adnexal cyst likely an ovarian cyst. OSSEOUS STRUCTURES: No acute abnormality. OTHER: Fat-containing midline supraumbilical hernia. IMPRESSION: 1. Negative for acute abnormality of the abdomen or pelvis. 2. Negative for nephroureterolithiasis or obstructive uropathy. 3. Non-visualized appendix. No focal right lower quadrant inflammatory change. 4. Proximal 4 cm right adnexal cyst, likely physiologic ovarian cyst. Dictated by: Dictated on workstation # [id number]
[2022-12-01 08:57] LABS: BILIRUBIN,TOTAL 0.2 MG/DL (0.1-1.0); CALCIUM 9.5 MG/DL (8.5-10.1); CREATININE SERUM 0.85 MG/DL (0.60-1.30)
[2022-12-01 08:58] LABS: ALBUMIN 4.2 GM/DL (3.2-4.5); TOTAL PROTEIN 7.9 GM/DL (6.4-8.2)
[2022-12-01] MEDS ORDERED: KETOROLAC 15 MG/ML VIAL IVP STA (09:47)
[2022-12-01] MEDS ORDERED: ONDA4TAB11 PO (09:49)
[2022-12-01] MEDS ORDERED: ACHD5005 PO (09:49)
[2022-12-01] MEDS ORDERED: PANT40TA52 PO (09:49)
[2022-12-01 10:00] VITALS: BP 137/81
== END 2022-12-01 10:00 | disposition home or self-care (01) ==
LOC: EDUNIT# 07:40 → ER FS 07:43
DX: R10.12 Left upper quadrant pain (principal); R11.2 Nausea with vomiting, unspecified; M54.50 Low back pain, unspecified; R73.9 Hyperglycemia, unspecified
CPT/HCPCS: 36415; 74176; 80053; 81000; 83690; 84703; 85025

== ENCOUNTER 2022-12-03 08:58 | Emergency (ER) | payer MEDICAID ==
[~2022-12-03] VITALS: Ht 167.7 cm; Wt 96.2 kg
[~2022-12-03 08:58] MED LIST changes: +PANT40TA52 PO
--- NOTE | 2022-12-03 09:29 | ED General ---
General Stated Complaint: BACK PAIN | SIDE PAIN | VOMITING Source of Information: Patient Exam Limitations: No Limitations History of Present Illness Date Seen by Provider: Dec 03, 2022 Time Seen by Provider: 09:29 Initial Comments Patient is a 37-year-old female who presents to the emergency room with a chief complaint of left upper quadrant/left flank pain onset 10 days ago. Has had persistent nausea and vomiting over the last 3 or 4 days. Had a visit to [facility] emergency department on Wednesday of this week, 48 hours ago with labs, fluids, nausea medicine and CT abdomen and pelvis which was unremarkable. Patient states she was given prescriptions for Zofran, Protonix and hydrocodone, is having a really hard time holding down the medications. She states the pain is a "10". She relates a history of having acute renal failure about a year ago with no etiology having been found. She states the pain in her left side is exactly like it was a year ago. No fevers. no diarrhea, no black or bloody stools. The pain and n/v is unrelated to food intake. She still has her GB, but the pain is LUQ. Patient states the pain is *much* worse laying supine and on her left side. Timing/Duration: Other (2 weeks) Severity: Severe Modifying Factors: worse with Movement Associated Systoms: Malaise, Nausea/Vomiting Allergies and Home Medications Allergies Coded Allergies: No Known Drug Allergies (Unverified , 06/04/20) Patient Home Medication List Home Medication List Reviewed: Yes Dicyclomine HCl (Dicyclomine HCl) 20 Mg Tablet, 20 MG PO QIDACHS PRN for abdom inal pain Prescribed by: PABLO SHAH on 12/03/22 1151 Hydrocodone/Acetaminophen (Hydrocodone-Acetamin 5-325 mg) 5 Mg-325 Mg Tablet, 1 TAB PO Q6H PRN for PAIN-MODERATE (5-7), (Reported) Entered as Reported by: LAMBERTO ZEPEDA on 01/15/22 1446 Hydrocodone/Acetaminophen (Hydrocodone-Acetamin 5-325 mg) 5 Mg-325 Mg Tablet, 1 TAB PO Q6H PRN for PAIN SEVERE Prescribed by: ALEE GUERRERO on 12/01/22 0950 Ondansetron (Ondansetron Odt) 4 Mg Tab.rapdis, 4 MG PO Q6H PRN for NAUSEA/VOMITING-1ST LINE, (Reported) Entered as Reported by: LAMBERTO ZEPEDA on 01/15/22 1446 Ondansetron (Ondansetron Odt) 4 Mg Tab.rapdis, 4 MG PO Q6H PRN for N AUSEA/VOMITING Prescribed by: ALEE GUERRERO on 12/01/22 0949 Pantoprazole Sodium (Pantoprazole Sodium) 40 Mg Tablet.dr, 40 MG PO DAILY Prescribed by: ALEE BRADYRT on 12/01/22 0949 Promethazine HCl (Promethazine Tablet) 25 Mg Tablet, 25 MG PO Q6H PRN for NAUSEA/VOMITING Prescribed by: PABLO SHAH on 12/03/22 1151 Review of Systems Review of Systems Constitutional: see HPI EENTM: no symptoms reported Respiratory: no symptoms reported Cardiovascular: no symptoms reported Gastrointestinal: abdominal pain (LUQ), nausea, vomiting Genitourinary: no symptoms reported : No Musculoskeletal: no symptoms reported Skin: no symptoms reported Psychiatric/Neurological: Anxiety Past Lwoqqci-Owslga-Scrccl Hx Immunizations Up To Date Tetanus Booster (TDap): Unknown First/Initial COVID19 Vaccinat: 03/2021 Second COVID19 Vaccination Alex: 03/2021 Third COVID19 Vaccination Date: 03/2021 Seasonal Allergies Seasonal Allergies: No Past Medical History Surgery/Hospitalization HX: TUBAL LIGATION, Acute kidney injury December 2021 Surgeries: Yes (Ablation uterus) Tubal Ligation Respiratory: No Cardiac: No Neurological: No 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 oz. kg; 35.00 BMI Method: General Appearance: WD/WN, Mild Distress Eyes: Bilateral Eye Normal Inspection, Bilateral Eye PERRL, Bilateral Eye EOMI HEENT: PERRL/EOMI, Moist Mucous Membranes Neck: Normal Inspection Respiratory: Lungs Clear, Normal Breath Sounds, No Accessory Muscle Use, No Respiratory Distress Cardiovascular: Regular Rate, Rhythm, Normal Peripheral Pulses, Tachycardia Gastrointestinal: Normal Bowel Sounds, Soft, Tenderness (just under the left ribs in the left upper quadrant. no rebound. +guarding; no rashes overlying.) Back: Normal Inspection, No CVA Tenderness Extremity: Normal Capillary Refill, Normal Inspection, Normal Range of Motion, Non Tender Neurologic/Psychiatric: Alert, Oriented x3, No Motor/Sensory Deficits, Normal Mood/Affect, yield engineer II-XII Norm as Tested Focused Exam Lactate Level 12/03/22 09:50: Lactic Acid Level 1.12 Lactic Acid Level Laboratory Tests Test 12/03/22 09:50 Lactic Acid Level 1.12 MMOL/L (0.50-2.00) Progress/Results/Core Measures Suspected Sepsis SIRS Temperature: Pulse: Respiratory Rate: Laboratory Tests 12/03/22 09:50: White Blood Count 9.5 Blood Pressure / Mean: 12/03/22 09:50: Lactic Acid Level 1.12 Laboratory Tests 12/03/22 09:50: Creatinine 0.93, Platelet Count 255, Total Bilirubin 0.5 Results/Orders Lab Results Laboratory Tests Test 12/03/22 09:48 12/03/22 09:50 Range/Units Urine Color YELLOW Urine Clarity CLEAR Urine pH 6.0 5-9 Urine Specific [place] <=1.005 1.016-1.022 Urine Protein NEGATIVE NEGATIVE Urine Glucose (UA) NEGATIVE NEGATIVE Urine Ketones NEGATIVE NEGATIVE Urine Nitrite NEGATIVE NEGATIVE Urine Bilirubin NEGATIVE NEGATIVE Urine Urobilinogen 0.2 < = 1.0 MG/DL Urine Leukocyte Esterase NEGATIVE NEGATIVE Urine RBC (Auto) TRACE-I H NEGATIVE Urine RBC RARE /HPF Urine WBC NONE /HPF Urine Squamous Epithelial Cells 0-2 /HPF Urine Crystals NONE /LPF Urine Bacteria FEW H /HPF Urine Casts NONE /LPF Urine Mucus NEGATIVE /LPF Urine Culture Indicated NO White Blood Count 9.5 4.3-11.0 10^3/uL Red Blood Count 4.66 3.80-5.11 10^6/uL Hemoglobin 15.2 11.5-16.0 g/dL Hematocrit 46 35-52 % Mean Corpuscular Volume 98 80-99 fL Mean Corpuscular Hemoglobin 33 25-34 pg Mean Corpuscular Hemoglobin Concent 33 32-36 g/dL Red Cell Distribution Width 13.3 10.0-14.5 % Platelet Count 255 130-400 10^3/uL Mean Platelet Volume 10.4 9.0-12.2 fL Immature Granulocyte % (Auto) 0 % Neutrophils (%) (Auto) 76 H 42-75 % Lymphocytes (%) (Auto) 18 12-44 % Monocytes (%) (Auto) 5 0-12 % Eosinophils (%) (Auto) 0 0-10 % Basophils (%) (Auto) 0 0-10 % Neutrophils # (Auto) 7.3 1.8-7.8 10^3/uL Lymphocytes # (Auto) 1.7 1.0-4.0 10^3/uL Monocytes # (Auto) 0.5 0.0-1.0 10^3/uL Eosinophils # (Auto) 0.0 0.0-0.3 10^3/uL Basophils # (Auto) 0.0 0.0-0.1 10^3/uL Immature Granulocyte # (Auto) 0.0 0.0-0.1 10^3/uL Sodium Level 142 135-145 MMOL/L Potassium Level 4.0 3.6-5.0 MMOL/L Chloride Level 110 H 98-107 MMOL/L Carbon Dioxide Level 22 21-32 MMOL/L Anion Gap 10 5-14 MMOL/L Blood Urea Nitrogen 8 7-18 MG/DL Creatinine 0.93 0.60-1.30 MG/DL Estimat Glomerular Filtration Rate 81 BUN/Creatinine Ratio 9 Glucose Level 110 H 70-105 MG/DL Lactic Acid Level 1.12 0.50-2.00 MMOL/L Calcium Level 9.2 8.5-10.1 MG/DL Corrected Calcium 9.1 8.5-10.1 MG/DL Total Bilirubin 0.5 0.1-1.0 MG/DL Aspartate Amino Transf (AST/SGOT) 15 5-34 U/L Alanine Aminotransferase (ALT/SGPT) 15 0-55 U/L Alkaline Phosphatase 66 40-136 U/L Total Protein 7.7 6.4-8.2 GM/DL Albumin 4.1 3.2-4.5 GM/DL Lipase 24 8-78 U/L My Orders Orders - PABLO SHAH MD Ed Iv/Invasive Line Start (12/03/22 09:37) Cbc With Automated Diff (12/03/22 09:37) Comprehensive Metabolic Panel (12/03/22 09:37) Lipase (12/03/22 09:37) Urinalysis (12/03/22 09:37) Ns Iv 1000 Ml (Sodium Chloride 0.9%) (12/03/22 09:45) Promethazine Injection (Phenergan Injec (12/03/22 09:45) Lactic Acid Analyzer (12/03/22 09:39) Ns Iv 1000 Ml (Sodium Chloride 0.9%) (12/03/22 10:40) Ct Abdomen/Pelvis W (12/03/22 10:40) Iohexol Injection (Omnipaque 350 Mg/Ml 1 (12/03/22 10:45) Ns (Ivpb) (Sodium Chloride 0.9% Ivpb Bag (12/03/22 10:45) Dicyclomine Injection (Bentyl Injection) (12/03/22 11:45) Fentanyl Inj (Sublimaze Injection) (12/03/22 11:45) Medications Given in ED Current Medications Medications Dose Ordered Sig/Ariel Route Start Time Stop Time Status Last Admin Dose Admin Fentanyl Citrate 50 mcg ONCE ONCE IVP 12/03/22 11:45 12/03/22 11:46 DC 12/03/22 11:51 50 MCG Iohexol 100 ml ONCE ONCE IV 12/03/22 10:45 12/03/22 10:46 DC 12/03/22 10:53 80 ML Promethazine HCl 25 mg ONCE ONCE IVP 12/03/22 09:45 12/03/22 09:46 DC 12/03/22 09:54 25 MG Sodium Chloride 100 ml ONCE ONCE IV 12/03/22 10:45 12/03/22 10:46 DC 12/03/22 10:54 80 ML Vital Signs/I&O 12/03/22 12/03/22 09:15 12:35 Temp 36.9 Pulse 100 86 Resp 22 19 B/P (MAP) 139/87 (104) 125/81 Pulse Ox 98 98 O2 Delivery Room Air Capillary Refill : Progress Note : Time: 11:46 Progress Note Patient seen and evaluated by me. Evaluation today includes a physical exam, CBC, Chem-12, lactic acid, urinalysis, CT abdomen and pelvis with IV contrast. Pertinent physical exam findings well-developed well-nourished 37-year-old female in mild distress due to left upper quadrant abdominal pain. Abdomen is soft, bowel sounds are present. She has point tenderness in the left upper quadrant just below the left lower ribs. She is very apprehensive with exam and actually cries when laying supine for examination. She does attempt to guard. No rebound tenderness. Heart is regular, lungs are clear. Vital signs are stable. No overlying skin changes or rashes. No palpable abnormalities. Differential diagnosis based on history and physical exam, splenic infarct, gastric ulcer, referred pain due to biliary colic. Labs reviewed, CBC is normal, chemistry is normal. Lactic acid is 1. She has trace hematuria. CT abdomen and pelvis with IV contrast does not reveal anything remarkable in the left upper quadrant. Patient continues to have pain in spite of fluids. She was given Phenergan and her IV fluids. We will give her some fentanyl and dicyclomine. Strongly recommended follow-up with Dr. Lechuga, general surgery. I will provide his contact information on her paperwork. She has hydrocodone, Protonix and Zofran for home. I am going to add some Phenergan as well as the dicyclomine for home. Return precautions provided. I do not have an etiology/cause of her persistent nausea vomiting and left upper quadrant abdominal pain at this time. She likely needs upper endoscopy to help further elucidate the cause. She is quite frustrated with the lack of diagnosis. She is comfortable with the plan of care as far as follow-up with Dr. Lechuga. All questions are sought and answered. Diagnostic Imaging Diagonstic Imaging: CT Comments [facility], [place] NAME: SALVATORE HALEY [facility] REC#: [id number] PT STATUS: REG ER : 1985 PHYSICIAN: PABLO SHAH MD ADMIT DATE: 12/03/22/ER Draft Date of Exam:12/03/22 CT ABDOMEN/PELVIS W PROCEDURE: CT abdomen and pelvis with contrast. TECHNIQUE: Multiple contiguous axial images were obtained through the abdomen and pelvis after administration of intravenous contrast. Auto Exposure Controls were utilized during the CT exam to meet ALARA standards for radiation dose reduction. All CT scans use one or more of the following dose optimizing techniques: automated exposure control, MA and/or KvP adjustment based on patient size and exam type or iterative reconstruction. INDICATION: Severe left upper quadrant pain. COMPARISON: Correlation is made with the prior CT from 2 days earlier. FINDINGS: The lung bases are clear. The liver demonstrates low attenuation, consistent with hepatic steatosis. No discrete liver mass is identified. The gallbladder is unremarkable. There is no biliary ductal dilatation. The pancreas and spleen are unremarkable. No adrenal mass is detected. The kidneys are unremarkable. There is no hydronephrosis. The aorta is nonaneurysmal. The bowel loops appear nonobstructed. No inflammatory changes are seen. There is a midline supraumbilical fat-containing ventral hernia. A cystic mass in the deep right pelvis is again noted measuring 4.1 x 3.4 cm, consistent with an ovarian cyst. There is a small amount of free pelvic fluid. The bladder and uterus are unremarkable. IMPRESSION: 1. Hepatic steatosis. 2. Fat-containing midline supraumbilical ventral hernia. 3. Right ovarian cyst. Dictated on workstation # [id number] Dict: 12/03/22 1110 Trans: 12/03/22 1116 [id number] Interpreted by: SERAFIN SANDHU MD Electronically signed by: Departure Impression Primary Impression: Abdominal pain Qualified Codes: R10.12 - Left upper quadrant pain Additional Impression: Nausea and vomiting Qualified Codes: R11.2 - Nausea with vomiting, unspecified Disposition: 01 HOME, SELF-CARE Condition: Stable Departure-Patient Inst. Decision time for Depature: 11:50 Referrals: CHARLEE HE APRN (PCP) Primary Care Physician [facility] (Family) Primary Care Physician Patient Instructions: Nausea and Vomiting, Adult Add. Discharge Instructions: [place] diet, avoid fatty foods. Take the dicyclomine 30 minutes before attempting to eat. You can take this up to 4 times daily every 6 hours. Phenergan as well 25 mg every 6 hours as needed for nausea. You can also take the ondansetron as well. If you develop a fever, vomiting blood, blood in your stool or any other emergent, concerning symptoms please return to the emergency department for reevaluation. Please call Dr. Lechuga's office today for a follow-up appointment for possible scope of the espohagus and stomach. Scripts Promethazine HCl (Promethazine Tablet) 25 Mg Tablet 25 MG PO Q6H PRN for NAUSEA/VOMITING, #12 TAB Prov: PABLO SHAH MD 12/03/22 Dicyclomine HCl (Dicyclomine HCl) 20 Mg Tablet 20 MG PO QIDACHS PRN for abdominal pain, #60 TAB Prov: PABLO SHAH MD 12/03/22 Work/School Note: Work Release Form Date Seen in the Emergency Department: Dec 03, 2022 Return to Work: Dec 07, 2022 PABLO SHAH MD Dec 03, 2022 09:29
[2022-12-03] MEDS ORDERED: PROMETHAZINE INJ 25 MG/ML (PHENERGAN) AMP IVP ONE (09:45)
[2022-12-03] MEDS ORDERED: NS IV 1000 ML 1,000 ML IV SCH (09:45)
[2022-12-03 09:55] LABS: BILIRUBIN,URINE NEGATIVE (NEGATIVE); CLARITY,URINE CLEAR; COLOR,URINE YELLOW; GLUCOSE, URINE (UA) NEGATIVE (NEGATIVE); KETONES,URINE NEGATIVE (NEGATIVE); LEUKOCYTE ESTERASE ,URINE NEGATIVE (NEGATIVE); NITRITE,URINE NEGATIVE (NEGATIVE); PROTEIN,URINE NEGATIVE (NEGATIVE)
[2022-12-03 10:04] LABS: BASOPHILS % (AUTO) 0 % (0-10); EOSINOPHILS % (AUTO) 0 % (0-10); HEMATOCRIT 46 % (35-52); HEMOGLOBIN 15.2 g/dL (11.5-16.0); LYMPHOCYTES # (AUTO) 1.7 10^3/uL (1.0-4.0); LYMPHOCYTES % (AUTO) 18 % (12-44); MEAN CORPUSCULAR HEMOGLOBIN 33 pg (25-34); MEAN CORPUSCULAR HGB CONC 33 g/dL (32-36); MEAN CORPUSCULAR VOLUME 98 fL (80-99); MEAN PLATELET VOLUME 10.4 fL (9.0-12.2); MONOCYTES # (AUTO) 0.5 10^3/uL (0.0-1.0); MONOCYTES % (AUTO) 5 % (0-12); NEUTROPHILS # (AUTO) 7.3 10^3/uL (1.8-7.8); NEUTROPHILS % (AUTO) 76 % (42-75); PLATELET COUNT 255 10^3/uL (130-400); WHITE BLOOD COUNT 9.5 10^3/uL (4.3-11.0)
[2022-12-03 10:09] LABS: BACTERIA,URINE FEW /HPF; RBC,URINE RARE /HPF; SQUAMOUS EPITHELIAL CELL,UR 0-2 /HPF
[2022-12-03 10:14] LABS: ALBUMIN 4.1 GM/DL (3.2-4.5)
[2022-12-03 10:15] LABS: CALCIUM 9.2 MG/DL (8.5-10.1)
[2022-12-03 10:16] LABS: TOTAL PROTEIN 7.7 GM/DL (6.4-8.2)
[2022-12-03 10:18] LABS: BILIRUBIN,TOTAL 0.5 MG/DL (0.1-1.0)
[2022-12-03 10:20] LABS: CREATININE SERUM 0.93 MG/DL (0.60-1.30)
[2022-12-03] MEDS ORDERED: NS IV 1000 ML 1,000 ML IV STA (10:40)
[2022-12-03] MEDS ORDERED: IOHEXOL 350 MG/ML 100 ML (OMNIPAQUE 350) VIAL IV ONE (10:45)
[2022-12-03] MEDS ORDERED: NS 100 ML (IVPB) BAG IV ONE (10:45)
--- NOTE | 2022-12-03 11:17 | Diagnostic Imaging Report ---
PROCEDURE: CT abdomen and pelvis with contrast. TECHNIQUE: Multiple contiguous axial images were obtained through the abdomen and pelvis after administration of intravenous contrast. Auto Exposure Controls were utilized during the CT exam to meet ALARA standards for radiation dose reduction. All CT scans use one or more of the following dose optimizing techniques: automated exposure control, MA and/or KvP adjustment based on patient size and exam type or iterative reconstruction. INDICATION: Severe left upper quadrant pain. COMPARISON: Correlation is made with the prior CT from 2 days earlier. FINDINGS: The lung bases are clear. The liver demonstrates low attenuation, consistent with hepatic steatosis. No discrete liver mass is identified. The gallbladder is unremarkable. There is no biliary ductal dilatation. The pancreas and spleen are unremarkable. No adrenal mass is detected. The kidneys are unremarkable. There is no hydronephrosis. The aorta is nonaneurysmal. The bowel loops appear nonobstructed. No inflammatory changes are seen. There is a midline supraumbilical fat-containing ventral hernia. A cystic mass in the deep right pelvis is again noted measuring 4.1 x 3.4 cm, consistent with an ovarian cyst. There is a small amount of free pelvic fluid. The bladder and uterus are unremarkable. IMPRESSION: 1. Hepatic steatosis. 2. Fat-containing midline supraumbilical ventral hernia. 3. Right ovarian cyst. Dictated by: Dictated on workstation # [id number]
[2022-12-03] MEDS ORDERED: fentaNYL INJ 100 MCG/2 ML AMP IVP ONE (11:45)
[2022-12-03] MEDS ORDERED: DICYCLOMINE 10 MG/ML (BENTYL) 2 ML AMP IM STA (11:45)
[2022-12-03] MEDS ORDERED: DICY20TA PO (11:51)
[2022-12-03] MEDS ORDERED: PROM25TA14 PO (11:51)
[2022-12-03 12:35] VITALS: BP 125/81
== END 2022-12-03 12:35 | disposition home or self-care (01) ==
LOC: EDUNIT# 08:58 → ER 08:59
DX: R10.12 Left upper quadrant pain (principal); R11.2 Nausea with vomiting, unspecified
CPT/HCPCS: 36415; 74177; 80053; 81000; 83605; 83690; 85025

== ENCOUNTER → 2022-12-18 | Outpatient (CLI) | payer MEDICAID ==
[~2022-12-18] VITALS: Ht 167.6 cm; Wt 96.6 kg
[~2022-12-18] MED LIST changes: +DICY20TA PO; +PROM25TA14 PO
== END | disposition home or self-care (01) ==
LOC: PREOP 12:45
PROVIDERS: ATTEND Surgery
DX: Z01.818 Encounter for other preprocedural examination (principal)

== ENCOUNTER 2022-12-28 09:21 | Day surgery (SDC) | payer MEDICAID ==
[~2022-12-28] VITALS: Ht 167.6 cm; Wt 96.6 kg
[2022-12-28] MEDS ORDERED: LACTATED RINGERS 1,000 ML IV STA (09:42)
[2022-12-28] MEDS ORDERED: HURRICAINE EXT TUBE (BENZOCAINE) XX PRN (09:45)
[2022-12-28 11:10] VITALS: BP 122/87
--- NOTE | 2022-12-28 11:26 | Progress Note-Pre Operative ---
Pre-Operative Progress Note Date of Available H&P: Dec 17, 2022 Date H&P Reviewed: Dec 28, 2022 Time H&P Reviewed: 11:24 History & Physical: H&P Reviewed, Patient Examed, No changes noted Pre-Operative Diagnosis: Epigastric pain CARLOS PETERSON DO Dec 28, 2022 11:26
[2022-12-28] MEDS ORDERED: proPOfol 200 MG/20 ML (DIPRIVAN) VIAL IV ONE (12:11)
[2022-12-28] MEDS ORDERED: MIDAZOLAM 2 MG/2 ML (VERSED) VIAL ONE (12:11)
--- NOTE | 2022-12-28 12:29 | Progress Note-Post Operative ---
Post-Operative Progess Note Surgeon (s)/Technical Translator (s) Surgeon CARLOS PETERSON DO Technical Translator: none Pre-Operative Diagnosis Epigastric pain Post-Operative Diagnosis gastritis mild esophagitis Small sliding hiatal hernia Procedure & Operative Findings Date of Procedure 12/28/22 Procedure Performed/Findings EGD with biopsy PROCEDURE NOTE: After informed consent was obtained, the patient was brought to the endoscopy suite, placed in bed in left lateral decubitus position. She was administered IV sedation by the PROBE OPERATOR who then monitored vitals the entire time, heart rate, blood pressure and pulse ox and the scope was inserted down the mouth through the esophagus into the stomach. On the way down, noted some mild esophagitis, took a picture, pushed into the stomach, pushed past the antrum into the duodenum. Duodenum looked good. Pulled back and did a biopsy of the antrum, then retroflexed the scope, saw a very small sliding hiatal hernia; basically the GE junction sliding a couple of millimeters in and out. Took a picture of this and then pulled the scope into the GE junction and then did a biopsy of the GE junction. Pushed the scope back into the stomach, suctioned all the air out of the stomach. At this point pulled the scope up the esophagus and out the mouth. The patient tolerated the procedure, and she recovered in endoscopy suite. Anesthesia Type IV sedation by PROBE OPERATOR Estimated Blood Loss Estimated blood loss (mL): scant Specimens/Packing Specimens Removed antral bx GE jxn bx CARLOS PETERSON DO Dec 28, 2022 12:29
--- NOTE | 2022-12-28 12:30 | Endoscopy Discharge Instruct ---
Endo Procedure/Findings Findings 1.: Gastritis 2.: Hiatal Hernia (very slight) Discharge Instructions - Activity: You might feel a little sleepy until tomorrow. This is due to the medicine you received to relax you. Until tomorrow, you should: NOT drive a car, operate machinery or power tools. NOT drink any alcoholic beverages. NOT make any important decisions or sign importortant papers. Do not return to work until tomorrow, unless otherwise instructed. Resume previous activities tomorrow. Diet: Start by taking liquids. If you tolerate liquids, advance to solid food. 1.: EGD in 3 years Notify Physician - If you experience excessive bleeding, unusual abdominal pain, fever, or chest pain, contact your doctor immediately. Follow-Up: Other Follow up in my office in a week CARLOS PETERSON DO Dec 28, 2022 12:30
[2022-12-28 12:32] VITALS: BP 98/54
[2022-12-28 12:37] VITALS: BP 99/64
[2022-12-28 12:45] VITALS: BP 106/77
--- NOTE | 2022-12-28 13:01 | Anesthesia-General Post-Op ---
MAC Patient Condition Mental Status/LOC: Same as Preop Cardiovascular: Satisfactory Nausea/Vomiting: Absent Respiratory: Satisfactory Pain: Controlled Complications: Absent Post Op Complications Complications None Follow Up Care/Instructions Patient Instructions None needed. Anesthesiology Discharge Order Discharge Order Patient is doing well, no complaints, stable vital signs, no apparent adverse anesthesia problems. No complications reported per nursing. DAMION MOYER CRNA Dec 28, 2022 13:01
[2022-12-28 13:05] VITALS: BP 106/77
== END 2022-12-28 13:09 | disposition home or self-care (01) ==
LOC: ENDO 09:21
PROVIDERS: ATTEND Surgery
DX: K29.50 Unspecified chronic gastritis without bleeding (principal); K20.90 Esophagitis, unspecified without bleeding; B96.81 Helicobacter pylori [H. pylori] as the cause of diseases classified elsewhere; K44.9 Diaphragmatic hernia without obstruction or gangrene; K43.9 Ventral hernia without obstruction or gangrene; F17.210 Nicotine dependence, cigarettes, uncomplicated
CPT/HCPCS: 84703

== ENCOUNTER → 2023-02-09 | Outpatient (CLI) | payer MEDICAID ==
--- NOTE | 2023-02-09 13:11 | Diagnostic Imaging Report ---
PROCEDURE: US Gallbladder. TECHNIQUE: Multiple Real-time grayscale images were obtained over the right upper quadrant in various projections. INDICATION: Epigastric pain. FINDINGS: The liver is upper limits of normal in size at approximately 18 cm. There is increased echogenicity throughout the liver, consistent with hepatic steatosis. The portal vein is patent and shows normal direction of flow. The gallbladder is without stones or sludge. There is no wall thickening or biliary ductal dilatation. The pancreas is unremarkable. The visualized aorta and IVC are unremarkable. The right kidney is without calculus or hydronephrosis. There is no ascites. IMPRESSION: 1. Hepatic steatosis. 2. No evidence of cholelithiasis or acute cholecystitis. Dictated by: Dictated on workstation # [id number]
== END ==
LOC: RAD 09:00
PROVIDERS: ATTEND Surgery
DX: K76.0 Fatty (change of) liver, not elsewhere classified (principal)
CPT/HCPCS: 76705

== ENCOUNTER → 2023-02-19 | Outpatient (CLI) | payer MEDICAID ==
[~2023-02-19] MED LIST changes: +CATHETER FLUSH 10 ML SYR IVP PRN
--- NOTE | 2023-02-19 14:24 | Diagnostic Imaging Report ---
INDICATION: Epigastric pain. COMPARISON: None. RADIOPHARMACEUTICAL: Tc-99m Choletec 5.35 mCi IV followed by 8 ounces of oral Ensure. FINDINGS: The upper abdomen was imaged for 30 minutes with the gamma camera. There is normal appearance of activity in the liver. There is activity in the common duct and gallbladder by 30 minutes. After 30 minutes, the patient received 8 ounces of oral Ensure. After 45 minutes of additional imaging, the gallbladder ejection fraction was calculated to be 69% which is normal. IMPRESSION: Normal hepatobiliary study with GBEF of 69%. Dictated by: Dictated on workstation # [id number]
== END ==
LOC: CARD 12:00
PROVIDERS: ATTEND Surgery
DX: R10.13 Epigastric pain (principal)
CPT/HCPCS: 78227; A9537

== ENCOUNTER 2023-02-25 06:17 | Outpatient (CLI) | payer MEDICAID ==
[~2023-02-25] VITALS: Ht 167.6 cm; Wt 98.9 kg
[~2023-02-25 06:17] MED LIST changes: -CATHETER FLUSH 10 ML SYR IVP PRN
== END 2023-02-25 08:25 | disposition home or self-care (01) ==
LOC: PREOP 06:17
PROVIDERS: ATTEND Surgery
DX: Z01.818 Encounter for other preprocedural examination (principal)

== ENCOUNTER 2023-03-03 06:51 | Day surgery (SDC) | payer MEDICAID ==
[2023-03-03] VITALS (11 sets, daily range): BP systolic 106–145; BP diastolic 55–101
[~2023-03-03] VITALS: Ht 167.6 cm; Wt 98.9 kg
[2023-03-03] MEDS ORDERED: ceFAZolin INJECTION 2,000 MG in NS (IVPB) 50 ML IV ONE (07:15)
[2023-03-03] MEDS ORDERED: LACTATED RINGERS 1,000 ML IV PRN (07:15)
[2023-03-03] MEDS ORDERED: BUP/EPI 0.5% 1:200,000 (SENSORCAINE) 30 ML VIAL ONE (07:34)
--- NOTE | 2023-03-03 08:06 | Progress Note-Pre Operative ---
Pre-Operative Progress Note Date of Available H&P: Feb 23, 2023 Date H&P Reviewed: Mar 03, 2023 Time H&P Reviewed: 08:01 History & Physical: H&P Reviewed, Patient Examed, No changes noted Pre-Operative Diagnosis: Incarcerated incisional hernia CARLOS PETERSON DO Mar 03, 2023 08:06
[2023-03-03] MEDS ORDERED: proPOfol 200 MG/20 ML (DIPRIVAN) VIAL IV ONE (08:22)
[2023-03-03] MEDS ORDERED: fentaNYL INJ 100 MCG/2 ML AMP ONE ×2 (08:22→10:01)
[2023-03-03] MEDS ORDERED: SEVOFLURANE (ULTANE) 15 ML INHAL SOLN ONE ×2 (08:22→10:08)
[2023-03-03] MEDS ORDERED: ROCURONIUM 50 MG/5 ML (ZEMURON) VIAL IV ONE (08:22)
[2023-03-03] MEDS ORDERED: LIDOCAINE PF 2% 5 ML (XYLOCAINE) VIAL ONE (08:22)
[2023-03-03] MEDS ORDERED: MIDAZOLAM 2 MG/2 ML (VERSED) VIAL ONE (08:22)
[2023-03-03] MEDS ORDERED: ONDANSETRON 4 MG/2 ML (SDV) Z0FRAN ONE (08:22)
--- NOTE | 2023-03-03 10:08 | Progress Note-Post Operative ---
Post-Operative Progess Note Surgeon (s)/Driver Guard (s) Surgeon CARLOS PETERSON DO Driver Guard: Tony Pre-Operative Diagnosis Incarcerated incisional hernia Post-Operative Diagnosis Same plus incarcerated umbilical hernia Procedure & Operative Findings Date of Procedure 03/03/23 Procedure Performed/Findings PROCEDURE: Laparoscopic Incarcerated Incisional hernia and Umbilical hernia repair with mesh. Appx 7cm with bridging COMPLICATIONS: None. INDICATIONS: The patient is a 37, female with an incarcerated incisional hernia, which has continued to increase in size and cause discomfort. The patient was explained the risk and benefits of the procedure and wished to proceed with the procedure. Consent was signed on the chart. DESCRIPTION OF PROCEDURE: The patient was taken into the operating suite, prepped and draped in sterile fashion. Surgical pause was performed. Local anesthetic was infiltrated in left upper quadrant. A #11 blade scalpel was used to make a small skin incision. Cautery was used to dissect down to the fascia, which was then scored and divided the muscle, went through the posterior sheath and a balloon trocar was inserted into the abdomen. The abdomen was then insufflated. A 8 mm robotic trocar was placed in the left lower quadrant and another 8 mm trocar was placed at about the umbilicus (but lateral). The robot was then docked. Took down pre- peritoneal fat and found an incarcerated umbilical hernia. Then just above it by about 2cm found a very large incarcerated incisional hernia (pictures taken). Took out a large amount of fat and found an approximately 3.5cm defect. The defect was then closed using 0 Strattafix; picture taken. The robot was then undocked and a 5mm Versa-step port was placed on the right side of the abdomen at about umbilicus. Then placed the Echo Ventralight mesh 4x6 inch oval; inserted in the abdomen grabbed through a stab incision with the Ivone. The balloon was inflated on the mesh. Circumferential tacks were placed with a SecureStrap Tacker. The balloon was then removed and inner crown was created as well. The mesh was tacked with pressure being decreased. The 12 mm fascial defect was then closed using 0 Vicryl. The abdomen was then desufflated,the trocars were removed. The skin was then closed using 4-0 Monocryl in a subcuticular fashion. The abdomen was washed and dried and Skin Affix was placed over the incisions. The patient tolerated procedure well without any complications. She was taken to r ecovery room in stable condition. Dr. Jimenez assisted on this case helping to make incisions, close incisions, identify anatomy and hold anatomy out of the way. Anesthesia Type GET Estimated Blood Loss Estimated blood loss (mL): scant Specimens/Packing Specimens Removed hernia contents CARLOS PETERSON DO Mar 03, 2023 10:08
[2023-03-03] MEDS ORDERED: ACHD5005 PO (10:09)
--- NOTE | 2023-03-03 10:10 | Discharge Inst-Surgical ---
Discharge Inst-Surgical Depart Medication/Instructions New, Converted or Re-Newed RX: Transmitted to Pharmacy Patient Instructions Follow up Appt: Make appointment for 1 week. [phone] Instructions: No lifting greater than 20 pounds. No strenuous activity. May shower in 24 hours, no tub bath or soaking. Use incentive spirometer at home as directed. No Smoking Skin/Wound Care: May remove bandages in am. You need to leave the Dermabond on incision it will fall off on it's own. Symptoms to Report: Appetite Changes, Extremity Discoloration, Numbness/Tingling, Swelling Increased, Bleeding Excessive, Eyesight Changes, Pain Increased, Urine Color Change, Constipation(Persistent), Fever over 101 degree F, Pain/Pressure in chest, Urinating Difficulty, Cough Up/Vomit Blood, Heart Beat Irreg/Pounding, Pain/Pressure in jaw, Cramps in feet or legs, Lightheadedness, Pain/Pressure in shoulder, Diarrhea(Persistent), Memory Changes Suddenly, Questions/Concerns, Weight gain consecutive days, Dizziness/Fainting, Nausea/Vomiting, Shortness of Breath, Weight gain over 2 pounds If questions or concerns contact your physician Or seek help at emergency department. Activity Activity as Tolerated: Yes Activity Instructions: Avoid Stress to Incision Driving Instructions: No Driving/Refer to Dr. Giron Discharge Diet: No Restrictions Diet After 24 Hours: Clear Liquid if Nauseous If Any Problems/Questions/Issu: Contact Your Physician, Go to Emergency Room Skin/Wound Care Infection Signs and Symptoms: Increased Redness, Foul Odor of Wound, Increased Drainage, Skin Itchy or Has a Rash, Increased Swelling, Temperature Above 101 F Wound Care Comment: heating pad to shoulder or neck tonight for pain Bathing Instructions: Shower Stitches/[place]/Dermabond Dis: D[place] CARLOS PETERSON DO Mar 03, 2023 10:10
--- NOTE | 2023-03-03 10:23 | Anesthesia-General Post-Op ---
General Patient Condition Mental Status/LOC: Same as Preop Cardiovascular: Satisfactory Nausea/Vomiting: Absent Respiratory: Satisfactory Pain: Controlled Complications: Absent Post Op Complications Complications None Follow Up Care/Instructions Patient Instructions None needed. Anesthesia/Patient Condition Patient Condition Patient is doing well, no complaints, stable vital signs, no apparent adverse anesthesia problems. No complications reported per nursing. BG MONTES CRNA Mar 03, 2023 10:23
[2023-03-03] MEDS ORDERED: MEPERIDINE (DEMEROL) INJ 50 MG/ML IVP ONE (10:30)
[2023-03-03] MEDS ORDERED: morphine INJ 10 MG/ML 1ML (SYR OR VIAL) IVP ONE (10:30)
[2023-03-03] MEDS ORDERED: ONDANSETRON 4 MG/2 ML (SDV) Z0FRAN IVP PRN (10:30)
[2023-03-03] MEDS ORDERED: HYDROcodone/APAP 5 MG/325 MG (LORTAB) TAB PO ONE (11:30)
== END 2023-03-03 12:53 | disposition home or self-care (01) ==
LOC: SDC 06:51
PROVIDERS: ATTEND Surgery
DX: K43.0 Incisional hernia with obstruction, without gangrene (principal); K42.0 Umbilical hernia with obstruction, without gangrene; F17.210 Nicotine dependence, cigarettes, uncomplicated; E66.9 Obesity, unspecified; Z68.35 Body mass index [BMI] 35.0-35.9, adult
CPT/HCPCS: 49594; 84703; 87081; C1781; 88302